=== PATIENT | female | born 1945 | race Caucasian/White ===

== ENCOUNTER 2016-07-11 07:45 | Inpatient (IN) | payer MEDICARE, OTHER ==
[2016-07-11] VITALS (23 sets, daily range): BP systolic 94–125; BP diastolic 65–88; BMI 39.6
[~2016-07-11] VITALS: Ht 154.9 cm; Wt 93.6 kg
--- NOTE | ~2016-07-11 | HEMODYNAMI ---
PATIENT:CORINE SALCIDO MEDICAL RECORD: [id number] : 41 [facility] DATE: 07/11/16 Generatedon:07/11/201611:12 Patient name: CORINE SALCIDO Patient #: [id number] SSN: : 1945 Date of study: 07/11/2016 Page: Of Hemodynamic Procedure Report Patient Data Patient Demographics Procedure consent was obtained First Name: CORINE Gender: Female Last Name: LOLY : 1945 [facility] Initial: RENÉE Age: 71 year(s) Patient #: [id number] Race: Unknown Additional ID: [id number] Contact details [address]: [address] [place] [address] State: [place] City: [place] Zip code: [address] Past Medical History Allergies Allergen Reaction Date Comments Reported Penicillins 07/11/2016 Admission Admission Data Admission Date: 07/11/2016 Admission Time: 9:36 [facility] Weight (lbs.): 198 Weight (kg.): 89.81 Lab Results Lab Result Date: 07/11/2016 Lab Result Time: 0:00 Biochemistry Name Units Result Min Max BUN mg/dl 29 --(----)-* 7 18 Creatinine mg/dl 1.4 --(----)*- 0.6 1.3 CBC Name Units Result Min Max Hemoglobin g/dl 10.2 *-(----)-- 13.5 17.5 Procedure Procedure Types Cath Procedure Diagnostic Procedure LHC LHC w/Coronaries PCI Procedure AMI-BMS/NAZIA Initial Miscellaneous Procedures Moderate Sedation up to 45 minutes Procedure Description Procedure Date Procedure Date: 07/11/2016 Procedure Start Time: 10:26 Procedure End Time: 11:04 Procedure Staff Name Function Asad Sales MD Performing Physician Indu Dodge RN Nurse Jacoby Khan RT Monitor Haresh Vargas RT Scrub Procedure Data Cath Procedure Fluoroscopy Diagnostic fluoroscopy Total fluoroscopy Time: 7.7 time: 7.7 min min Diagnostic fluoroscopy Total fluoroscopy dose: dose: 1113 mGy 1113 mGy Contrast Material Contrast Material Type Amount (ml) Isovue 300 208 Entry Location Entry Primary Successful Side Size Upsize Upsize Entry Closure Succes sful Closure Location (Fr) 1 (Fr) 2 (Fr) Remarks Device Remarks Femoral Right 6 Fr Exoseal artery Short Diagnostic catheters Device Type Used For End Catheter Placement Cordis 5Fr JL 4.0 Left Coronary Catheter (MP) Angiography Cordis 5Fr 3DRC Catheter Right Coronary (MP) Angiography Cordis 5Fr Pigtail LV Angiography Catheter (MP) Procedure Complications No complications Procedure Medications Medication Administration Route Dosage Oxygen NC 2 l/min Heparin Flush Bag added to field 2 bags (1000units/500ml NS) Lidocaine 2% added to field 20 Versed I.V. 0.5 mg Fentanyl I.V. 50 mcg Versed I.V. 0.5 mg Heparin Bolus I.V. 9000 units Fentanyl I.V. 25 mcg Versed I.V. 0.5 mg Nitroglycerin IC/IA I.C. 100 mcg Versed I.V. 0.5 mg Cardene I.C. 300 mcg Fentanyl I.V. 25 mcg Plavix P.O. 600 mg Hemodynamics Rest HGB: 10.2 (g/dl) Heart Rate: 81 (bpm) Pressure Samples Time Site Value (mmHg) Purpose Heart Use Rate(bpm) 10:32 LV 113/17,37 EDP 81 10:32 LV 116/15,30 Snapshot 75 10:33 AO 113/74(93) Pullback 85 10:33 LV 113/15,25 Pullback 85 Gradients Valve Time Site 1 Site 2 Mean SEP/DFP Peak To Heart Use (mmHg) (sec/min) Peak Rate (mmHg) (bpm) Aortic 10:33 LV AO 12 7 0 85 113/15,25 113/74(93) Calculations Valve P-P Mean Valve Index Valve Source Name Gradient Area Flow (cm2) Aortic 0 12 0 12 Snapshots Pre Cath Intra NCS Post Cath Vital Signs Time Heart Resp SPO2 etCO2 [id number] NIBP (mmHg) Rhythm Pain Christine tion Rate (ipm) (%) (mmHg) (mmHg) Status Level (bpm) 10:16:11 98 17 95 0 0 128/87(102) NSR w/ ST 3 (11) , 10(A ) Elevation Tolerable 10:20:19 80 16 100 0 0 124/89(99) NSR w/ ST 3 (11) , 10(A ) Elevation Tolerable 10:24:31 77 16 98 0 0 119/82(111) NSR w/ ST 0 (11) , 9(A) Elevation No pain 10:28:43 77 16 99 0 0 110/78(102) NSR w/ ST 0 (11) , 9(A) Elevation No pain 10:32:49 88 16 100 0 0 111/83(99) NSR w/ ST 0 (11) , 9(A) Elevation No pain 10:36:57 82 16 100 0 0 117/82(99) NSR w/ ST 0 (11) , 9(A) Elevation No pain 10:41:05 81 16 97 0 0 119/80(97) NSR w/ ST 0 (11) , 9(A) Elevation No pain 10:45:14 86 16 98 0 0 108/71(93) NSR w/ ST 0 (11) , 9(A) Elevation No pain 10:49:22 84 16 98 0 0 105/76(88) NSR w/ ST 0 (11) , 9(A) Elevation No pain 10:53:24 81 15 95 0 0 99/72(81) NSR w/ ST 0 (11) , 9(A) Elevation No pain 10:57:30 87 13 95 0 0 103/69(85) NSR w/ ST 0 (11) , 10(A ) Elevation No pain 11:00:46 85 14 95 0 0 104/72(88) NSR w/ ST 0 (11) , 10(A ) Elevation No pain Medications Time Medication Route Dose Verified Delivered Reason Notes Effectiveness by by 10:18:33 Oxygen NC 2 Asad Indu Per physician l/min Kishore Dodge RN 10:18:39 Heparin Flush added 2 Asad Asad used for Bag to bags Kishore Sales MD procedure (1000units/500ml field NS) 10:18:47 Lidocaine 2% added 20ml Asad Asad used for to vial Kishore Sales MD procedure field 10:20:55 Versed I.V. 0.5 Asad Indu for sedation mg Kishore Dodge RN 10:21:02 Fentanyl I.V. 50 Asad Indu for sedation mcg Kishore Dodge RN 10:30:12 Versed I.V. 0.5 Asad Nidu for sedation mg Kishore Dodge RN 10:35:54 Heparin Bolus I.V. 9000 Asad Indu for dose units Kishore Dodge RN anticoagulation verified wtih dr sales 10:36:19 Fentanyl I.V. 25 Asad Indu for sedation mcg Kishore Dodge RN 10:36:27 Versed I.V. 0.5 Asad Indu for sedation mg Kishore Dodge RN 10:47:39 Nitroglycerin I.C. 100 Asad Asad for IC/IA mcg Kishore Sales MD vasodilation 10:48:00 Versed I.V. 0.5 Asad Indu for sedation mg Kishore Dodge RN 10:51:04 Cardene I.C. 300 Asad Asad for mcg Kishore Sales MD vasodilation 10:51:28 Fentanyl I.V. 25 Asad Indu for sedation mcg Kishore Dodge RN 10:59:20 Plavix P.O. 600 Asad Indu for mg Kishore Dodge RN antiplatelet therapy Procedure Log Time Note 9:57:03 Haresh Vargas RT(R) sent for patient. Start room use. 9:57:04 Time tracking: Regular hours 9:57:08 Plan of Care:Hemodynamics will remain stable., Cardiac rhythm will remain stable., Comfort level will be maintained., Respiratory function will remain adequate., Patient/ family verbilizes understanding of procedure., Procedure tolerated without complication., Recovers from procedure without complications.. 10:10:35 Patient arrives emergently. 10:10:42 Patient received from ED to CCL 1 Alert and oriented. Tansferred to table in Supine position. 10:10:43 Correct patient and procedure confirmed by team. 10:10:43 Warm blankets applied, and jaleesa hugger turned on for patient comfort. 10:10:44 ECG and BP/O2 sat monitors applied to patient. 10:10:47 Signed procedure consent form obtained from patient. 10:15:10 Vital chart was started 10:17:42 Baseline sample Acquired. 10:17:50 Rhythm: sinus tachycardia 10:17:51 Full Disclosure recording started 10:17:57 H&P Date Dictated: 07/11/2016 Within 30 days and on chart.. 10:17:59 Pre-procedure instructions explained to patient. 10:18:00 Pre-op teaching completed and patient verbalized understanding. 10:18:02 Family in patients room. 10:18:03 Patient NPO since Midnight. 10:18:20 Patient allergic to Penicillins 10:18:22 Is the patient allergic to Iodine/contrast media? No. 10:18:27 Is patient on blood thinner?No 10:18:33 Oxygen 2 l/min NC was administered by Indu Dodge RN; Per physician; 10:18:39 Heparin Flush Bag (1000units/500ml NS) 2 bags added to field was administered by Asad Sales MD; used for procedure; 10:18:39 Patient diabetic? No. 10:18:40 ----Pre-sedation anethsthesia assessment.---- 10:18:43 Previous problem with sedation/anesthesia? No ? 10:18:45 Snore? No 10:18:47 Lidocaine 2% 20ml vial added to field was administered by Asad Sales MD; used for procedure; 10:18:47 Sleep apnea? No 10:18:55 Patient Weight : 198 kg 10:18:58 Deviated septum? No 10:19:06 Opens mouth fully? Yes 10:19:07 Sticks out tongue? Yes 10:19:10 Airway obstruction? No ? 10:19:12 Dentures? No ? 10:19:15 Pre procedure: right dorsailis pedis pulse 1+ Palpable, but thready & weak; easily obliterated 10:19:25 Patient pain scale 0/10 no pain at this time. 10:19:40 IV patent on arrival in right antecubital with 0.9% NaCl at 10ml/hr. 10:20:04 Lab Result : BUN 29 mg/dl 10:20:04 Lab Result : Creatinine 1.4 mg/dl 10:20:04 Lab Result : Hemoglobin 10.2 g/dl 10:20:07 Lab results completed and on chart. 10:20:10 Right groin area was prepped with chlora-prep and draped in sterile fashion 10:20:11 Alarms reviewed by R. N. 10:20:12 Sharps counted by scrub and verified by R.N. 10:20:13 --------ALL STOP TIME OUT------ 10:20:13 Final Timeout: patient, procedure, and site verified with staff and physician. All members of the team are in agreement. 10:20:15 Right groin site verified by team. 10:20:19 Physical assessment completed. ASA score P 2 - A patient with mild systemic disease as per Asad Sales MD. 10:20:24 Sedation plan: IV Moderate Sedation Versed, Fentanyl 10::29 Use device set Femoral PCI 10::32 Use device set Multipack Set 10:20:55 Versed 0.5 mg I.V. was administered by Indu Dodge RN; for sedation; 10:21:02 Fentanyl 50 mcg I.V. was administered by Indu Dodge RN; for sedation; 10:24:26 Procedure started. 10:26:00 Zero performed for pressure channel P1 10:26:20 Local anesthetic to right femoral artery with Lidocaine 2% by Asad Sales MD.INITIAL ACCESS ONLY 10:26:32 A 6 Fr Short sheath was inserted into the Right Femoral artery 10:27:56 Baseline sample Acquired. 10:28:04 Acist Syringe opened to sterile field. 10:28:04 Acist Hand Control opened to sterile field. 10:28:05 Bag Decanter opened to sterile field. 10:28:05 Medline Cath Pack opened to sterile field. 10:28:05 Terumo 6Fr [place] Sheath opened to sterile field. 10:28:06 St Arsenio 260cm J .035 wire opened to sterile field. 10:28:06 Merit BasixCompak Inflation Kit opened to sterile field. 10:28:07 Acist Manifold opened to sterile field. 10:28:07 Tegaderm 4 x 4 opened to sterile field. 10:28:08 Diagnostic Infinity 5Fr Multipack catheter opened to sterile field. 10:28:12 A Cordis 5Fr JL 4.0 Catheter (MP) was advanced over the wire and used for Left Coronary Angiography. 10:28:21 LCA angiography performed. 10:29:44 Catheter removed. 10:29:52 A Cordis 5Fr 3DRC Catheter (MP) was advanced over the wire and used for Right Coronary Angiography. 10:30:12 Versed 0.5 mg I.V. was administered by Indu Dodge RN; for sedation; 10:30:18 RCA angiography performed. 10:30:58 Catheter removed. 10:31:06 Cordis 6FR XBLAD 3.5 guide catheter opened to sterile field. 10:31:38 A Cordis 5Fr Pigtail Catheter (MP) was advanced over the wire and used for LV Angiography. 10::43 LV angiography performed. 10::45 LV gram done using QUINTERO 10::46 LV hemodynamics recorded. 10:31:51 Injector settings: Ml/sec: 10, Volume: 20, 10:33:05 EF : 30 % 10:33:22 Catheter removed. 10:33:36 ACC PCI Site: mLAD has 99% stenosis. 10:33:40 ACC Pre-intervention DION Flow is 3. 10:33:47 6 Fr XBLAD 3.5 guide catheter was inserted over the wire 10:33:54 BMW wire advanced. 10:35:54 Heparin Bolus 9000 units I.V. was administered by Indu Dodge RN; for anticoagulation; dose verified wt dr sales 10:36:19 Fentanyl 25 mcg I.V. was administered by Indu Dodge RN; for sedation; 10:36:27 Versed 0.5 mg I.V. was administered by Indu Dodge RN; for sedation; 10:37:59 Inflation number: 1 A Dresser Sci Bonner 2.0 X 20 balloon was prepped and advanced across the Mid LAD, then inflated to 12 CECI for 0:16 (min:sec). 10:38:22 Inflation number: 2 The Dresser Sci Bonner 2.0 X 20 balloon was reinflated across the Mid LAD, to 12 CECI for 0:15 (min:sec). 10:40:13 Balloon removed over the wire. 10:42:25 Inflation Number: 3 A Medtronic Integrity 2.75 X 18 stent was prepped and advanced across the Mid LAD. The stent was deployed at 16 CECI for 0:16 (min:sec). 10:43:40 Stent catheter was removed intact over wire. 10:46:16 Inflation Number: 4 A Medtronic Integrity 2.5 X 22 stent was prepped and advanced across the Mid LAD. The stent was deployed at 10 CECI for 0:16 (min:sec). 10:46:28 Inflation number: 5 The stent balloon was then re-inflated across the Mid LAD to 14 CECI for 0:11 (min:sec). 10:47:07 Stent catheter was removed intact over wire. 10:47:39 Nitroglycerin IC/IA 100 mcg I.C. was administered by Asad Sales MD; for vasodilation; 10:48:00 Versed 0.5 mg I.V. was administered by Indu Dodge RN; for sedation; 10:51:04 Cardene 300 mcg I.C. was administered by Asad Sales MD; for vasodilation; 10:51:28 Fentanyl 25 mcg I.V. was administered by Indu Dodge RN; for sedation; 10:57:03 Inflation Number: 1 A Medtronic Integrity 2.25 X 18 stent was prepped and advanced across the Dist LAD. The stent was deployed at 10 CECI for 0:13 (min:sec). 10:57:23 Stent catheter was removed intact over wire. 10:57:43 Sheath removed intact; hemostasis achieved with Exoseal to the Right Femoral artery. 10:57:53 Cordis 6Fr Exoseal opened to sterile field. 10:57:58 Contrast amount:Isovue 300 208ml. 10:58:00 Procedure ended.(Physican Out) 10:58:24 Procedure type changed to Cath procedure, Diagnostic procedure, LHC, C w/Coronaries, PCI procedure, AMI-BMS/NAZIA Initial, Miscellaneous Procedures, Moderate Sedation up to 45 minutes 10:59:20 Plavix 600 mg P.O. was administered by Indu Dodge RN; for antiplatelet therapy; ::23 Fluoroscopy time 07.70 minutes. 11::29 Fluoroscopy dose: 1113 mGy 11::29 Flurop Dose total: 1113 11:02:31 Sharps counted by scrub and verified by R.N. 11:02:32 Insertion/operative site no bleeding no hematoma. 11:02:35 Post-op/insertion site Right Femoral artery dressed using a 4 x 4 and Tegaderm. 11:02:39 Post right femoral artery:stable 11:02:41 Post Procedure Pulses reassessed and unchanged 11:02:43 Post procedure: right dorsailis pedis pulse 1+ Palpable, but thready & weak; easily obliterated. 11:02:49 Post-procedure physical assessment completed. ASA score P 2 - A patient with mild systemic disease as per Asad Sales MD. 11:02:55 Post procedure rhythm: sinus rhythm 11:02:57 Post procedure instruction explained to patient.Patient verbalizes understanding. 11:03:35 High Pressure Extension Tubing (Sales) opened to sterile field. 11:03:35 Porras BMW [place] 2 J-tip 300cm 0.014 guide wir opened to sterile field. 11:03:57 Procedure and supply charges have been captured, reviewed, submitted and are correct. 11:04:02 Procedure Complication : No complications 11:04:05 Vital chart was stopped 11:04:05 See physician's report for complete and final results. 11:04:07 Report given to CVICU. 11:04:10 Patient transfered to CVICU with Bed. 11:04:12 Procedure ended. 11:04:12 Full Disclosure recording stopped 11:04:25 ACC-PCI Only Patient was given prescriptions, or instructed by Asad Sales MD to start/continue the following medications upon discharge: Plavix 11:04:27 End room use (Document Last) Intervention Summary Intervention Notes Time ActionType Lesion and Equipment Action# Pressure Duration Attributes Used 10:37:59 Inflate Mid LAD Dresser 1 12 00:16 balloon Sci Bonner 2.0 X 20 balloon 10:38:22 Reinflate Mid LAD Dresser 2 12 00:15 balloon Sci Bonner 2.0 X 20 balloon 10:42:25 Place stent Mid LAD Medtronic 3 16 00:16 Integrity 2.75 X 18 stent 10:46:16 Place stent Mid LAD Medtronic 4 10 00:16 Integrity 2.5 X 22 stent 10:46:28 Reinflate Mid LAD Medtronic 5 14 00:11 stent Integrity balloon 2.5 X 22 stent 10:57:03 Place stent Dist LAD Medtronic 1 10 00:13 Integrity 2.25 X 18 stent Device Usage Item Name Manufacture Quantity Catalog Number Hospital Part Current [facility] Lot# / Charge Number Stock Stock Serial# Code Acist Acist 1 60308 373531 698665 673551 20 Syringe Medical Systems Inc Acist Hand Acist 1 93843 929377 814537 933621 5 Cirrus Works Inc Bag Microtek 1 556577 73631 261358 5 Loccit (ML4D) Inc. Medline Cardinal 1 [id number] 045452 05535 422774 5 Cath Pack Health Terumo 6Fr Terumo 1 [id number] 273193 885300 697128 [address] Arsenio 1 378923 204503 430401 529508 30 260cm J .035 wire Merit Merit 1 [id number] 286021 139710 485118 15 Syncurity Medical Inflation Kit Acist Acist 1 34564 493929 312033 983265 5 Ringly Inc Tegaderm 4 3M 1 [id number] 492216 562421 089830 5 x 4 Diagnostic Cardinal 1 [id number] 208015 42414 462282 30 Infinity Health 5Fr Multipack catheter Cordis 5Fr Cardinal 1 410266 5 JL 4.0 Health Catheter (MP) Cordis 5Fr Cardinal 1 776420 5 3DRC Health Catheter (MP) Cordis 6FR Cardinal 1 [id number] 656020 558848 181256 10 XBLAD 3.5 Health guide catheter Cordis 5Fr Cardinal 1 430093 5 Pigtail Health Catheter (MP) Dresser Sci Dresser 1 [id number] 396246 724372 696442 1 [id number] OPKO Health 2.0 X 20 balloon Medtronic Medtronic 1 [id number] 102129 358801 733336 0 [id number] Integrity 2.75 X 18 stent Medtronic Medtronic 1 [id number] 834444 861088 8 [id number] Integrity 2.5 X 22 stent Medtronic Medtronic 1 [id number] 890569 555830 440372 3 [id number] Integrity 2.25 X 18 stent Cordis 6Fr Cardinal 1 [id number] 426175 354407 818427 10 Semasio Health High Merit 1 [id number] 179378 52614 754269 10 Pressure Medical Extension Tubing (Sales) Porras BMW Porras 1 [id number] 519889 258672 101822 5 [place] 2 Vascular J-tip 300cm 0.014 guide wir Signature Audit [place] Stage Time Signature Unsigned Intra-Procedure 07/11/2016 Jacoby Khan 11:12:21 AM RT(R) Signatures Monitor : Jacoby Khan RT Signature : Date : Time : [address] [place] [address]
[2016-07-11 08:17] LABS: BASOPHILS 0.9 % (0.0-2.0); EOSINOPHILS 3.8 % (0-7); HEMATOCRIT 32.6 % (36.0-48.0); HEMOGLOBIN 10.2 g/dL (12-16); IMMATURE GRANULOCYTES 0.7 % (0-5); LYMPHOCYTES 32.9 % (15-50); MCH 26.6 pg (26.0-34.0); MCHC 31.3 g/dL (31.0-37.0); MCV 84.9 fL (80.0-100.0); MEAN PLATELET VOLUME 10.3 fL (7.4-10.4); MONOCYTES 8.3 % (2-11); NEUTROPHILS 53.4 % (40-80); RBC 3.84 10x6/uL (4.00-5.40); RDW 16.4 % (11.5-14.5); WBC 5.8 10x3/uL (4.8-10.8)
[2016-07-11 08:18] LABS: PLATELET COUNT 240 10x3/uL (130-400)
[2016-07-11 08:36] LABS: APTT 26.6 SECONDS (22.8-39.4); INR 1.01 (0.85-1.17); PROTIME 13.1 SECONDS (11.6-15.0)
[2016-07-11 08:37] LABS: ALBUMIN 3.2 g/dL (3.4-5.0); ALKALINE PHOSPHATASE 33 U/L (46-116); ALT (SGPT) 24 U/L (10-68); BILIRUBIN - TOTAL 0.19 mg/dL (0.2-1.3); CALC OSMOLALITY 290 mosm/kg (275-300); CALCIUM 8.7 mg/dL (8.5-10.1); CARBON DIOXIDE 27.1 mmol/L (21.0-32.0); CHLORIDE - SERUM 107 mmol/L (98-107); CREATININE - SERUM 1.4 mg/dL (0.6-1.3); GLUCOSE 130 mg/dL (74-106); POTASSIUM - SERUM 4.3 mmol/L (3.5-5.1); PROTEIN - SERUM 6.8 g/dL (6.4-8.2); SODIUM 142 mmol/L (136-145); UREA NITROGEN 29 mg/dL (7-18); eGFR NON AFRICAN AMERICAN 39 mL/min (90-120)
[2016-07-11 08:44] LABS: CHOL - HDL RATIO 4.3 ratio (2.3-4.1); CHOLESTEROL, TOTAL 204 mg/dL (0-200); CKMB 0.4 U/L (0.0-3.6); CREATINE KINASE 58 UL (21-215); HDL CHOLESTEROL 48 mg/dL (32-96); LDL CHOLESTEROL 113 mg/dL (0-100); LDL-HDL RATIO 2.4 ratio (1.5-3.5); MAGNESIUM - SERUM 2.1 mg/dL (1.8-2.4); TRIGLYCERIDE 219 mg/dL (30-200); TROPONIN-I 0.022 ng/mL (0.000-0.060)
--- NOTE | 2016-07-11 11:12 | NUR ---
RECIEVED REPORT FROM GENERAL PASSENGER AGENT FROM [place]. WAITING TO RECIEVE PT.
--- NOTE | 2016-07-11 11:16 | NUR ---
PT ARRIVED TO UNIT FROM [facility] VIA BED ACCOMPANIED BY HOSPITAL STAFF. PT IS STABLE. PEDAL PULSES PRESENT. FEMORAL DRESSING SITE IS CDI. NO ACUTE DISTRESS NOTED. WILL CONTINUE PLAN OF CARE.
--- NOTE | 2016-07-11 11:32 | NUR ---
FAMILY AT BEDSIDE. UPDATE GIVEN. NO ACUTE DISTRESS NOTED. WILL CONTINUE PLAN OF CARE.
--- NOTE | 2016-07-11 11:51 | NUR ---
DRESSING TO RIGHT FEMORAL HEART CATH ACCESS SITE NOTED TO BE SATURATED WITH BLOOD. SANDBAG APPLIED TO SITE TO HELP PROVIDE PRESSURE AND SUPRESS BLEEDING.
--- NOTE | 2016-07-11 12:19 | NUR ---
PT COMPLAINT OF NAUSEA. SPOKE WITH DR MITCHELL NOTED NEW ORDER FOR ZOFRAN 4MG Q4H. WILL PLACE ORDER.
--- NOTE | 2016-07-11 12:43 | NUR ---
BLEEDING TO RIGHT FEMORAL DRESSING SITE STOPPED. SANDBAG REMOVED. PEDAL PULSES PRESENT. WILL CONTINUE TO OBERVE.
--- NOTE | 2016-07-11 13:07 | NUR ---
500ML VOID VIA BEDPAN AT THIS TIME. RIGHT LEG KEPT STRAIGHT, PT KEPT FLAT. WILL CONTINUE PLAN OF CARE.
--- NOTE | 2016-07-11 13:07 | NUR ---
ASSESSMENTS PERFORMED PER ORDERS. NO S/S HEMATOMA. NO BLEEDING. PEDAL PULSES PRESENT. NO ACUTE DISTRESS NOTED. WILL CONTINUE PLAN OF CARE.
--- NOTE | 2016-07-11 15:01 | NUR ---
NO CHANGE. VSS. PT STILL LYING FLAT PER POST PROCEDURE PROTOCOL. NO S/S BLEEDING/HEMATOMA. NO ACUTE DISTRESS. WILL CONTINUE PLAN OF CARE.
--- NOTE | 2016-07-11 16:01 | NUR ---
PEDAL PULSES PRESENT PER PALPATATION NO BLEEDING NOTED OR S/S HEMATOMA. PT LYING FLAT. NO ACUTE DISTRESS NOTED. WILL CONTINUE PLAN OF CARE.
--- NOTE | 2016-07-11 16:54 | NUR ---
SCHEDULED COREG HELD AT THIS TIME FOR BP OF 104/68, MAP 80. HELD PER NURSE JUDGEMENT. WILL CONTINUE PLAN OF CARE.
--- NOTE | 2016-07-11 17:20 | NUR ---
NOTED PT HAS BEEN FLAT IN BED FOR 6 HOURS PER POST HEART CATH PROCEDURAL PROTOCOL. THERE IS NO S/S OF BLEEDING OR HEMATOMA NOTED, PEDAL PULSES PRESENT. PT DENIES ANY PAIN OR DISCOMFORT. LINENS CHANGED AND CLEAN LINENS PROVIDED AT THIS TIME. PT SITTING UP IN BED EATING SUPPER. DENIES ANY NEEDS. NO ACUTE DISTRESS NOTED. WILL CONTINUE PLAN OF CARE.
--- NOTE | 2016-07-11 19:30 | NUR ---
Received patient awake and alert in bed, Assessment completed per flowsheet. Patient AO x4, demeanor is pleasant and cooperative. Eyes PERRLA @ 3mm with brisk response, sclera is white. S1/S2 noted with patient NSR on telemetry with HR 76, ST elevation noted with rate rhythmic and regular. Breathing is even and unlabored on room air, lung sounds clear throughout with O2 sat 95%. Abdomen is soft and non-tender, bowel sounds active x4. Cath incision R groin, dressing CDI site is soft with no redness noted. 6fr Exoseal used. Full ROM all extremities with all pulses palpable, Cap refill <3 sec. Denies pain or other needs at this time, all VSS and will continue to monitor.
--- NOTE | 2016-07-11 21:00 | NUR ---
Visitors at bedside, no questions from family at this time. Patient denies pain or other needs, all VSS and will continue to monitor.
--- NOTE | 2016-07-11 23:04 | NUR ---
Reassessment completed per flowsheet, patient resting in bed with eyes closed. Patient NSR on telemetry with HR 72, rhythmic and regular with ST elevation noted. Breathing is even and effortless on room air, O2 sat 97%. Cath site dressing CDI, site is soft with no redness/bleeding noted. All extremities warm to touch with all pulses palpable, cap refill <3 sec. Patient denies pain or other needs at this time, all VSS and will continue to monitor.
[2016-07-12] VITALS (25 sets, daily range): BP systolic 93–123; BP diastolic 55–77; Ht 154.9 cm; Wt 93.6 kg
--- NOTE | 2016-07-12 01:00 | NUR ---
Patient resting in bed with eyes open watching TV, breathing is even and unlabored. Patient denies pain or other needs at this time, all VSS and will continue to monitor.
--- NOTE | 2016-07-12 03:12 | NUR ---
Reassessment completed per flowsheet, patient resting in bed with eyes closed. Patient NSR on Telemetry with HR 69, rhythmic and regular with ST elevation noted. Breathing is even and unlabored on room air, O2 sat 95%. R groin incision site no bleeding noted, soft and no redness noted. Patient denies pain at this time, all VSS and will continue to monitor.
--- NOTE | 2016-07-12 05:10 | NUR ---
Patient resting in bed with eyes closed, breathing is even and unlabored on room air. No further needs at this time, all VSS and will continue to monitor.
--- NOTE | 2016-07-12 07:00 | NUR ---
REPORT RECEIVED. ASSESSMENT COMPLETED. PATIENT IN HIGH FOWLERS POSITION WATCHING TV. ONLY REQUEST WAS TO USE THE BATHROOM. PATIENT ASSISTED TO THE BATHROOM. NO FURTHER NEEDS.
--- NOTE | 2016-07-12 09:30 | NUR ---
NO VISITORS NOTED THIS VISITATION.
[2016-07-12 10:37] LABS: ANION GAP 13.8 mmol/L (8-16); CALCIUM 8.3 mg/dL (8.5-10.1); CARBON DIOXIDE 24.3 mmol/L (21.0-32.0); CREATININE - SERUM 1.4 mg/dL (0.6-1.3); POTASSIUM - SERUM 4.1 mmol/L (3.5-5.1)
[2016-07-12 10:41] LABS: TROPONIN-I 54.608 ng/mL (0.000-0.060)
--- NOTE | 2016-07-12 10:47 | NUR ---
@1032 RECEIVED CALL FROM WILY IN LAB. PATIENTS TROP I [phone]. CALL WAS PLACED TO DR MITCHELL'S OFFICE. SPOKE WITH HANNA NEVES. WAS PLACED ON HOLD WHILE SHE SPOKE WITH DR MITCHELL. NEW ORDER RECEIVED FOR REPEAT TROP I IN 6 HOURS. ORDER WAS PUT IN THE COMPUTER.
--- NOTE | 2016-07-12 14:13 | NUR ---
PATIENT IN SEMIFOWLERS POSITION WATCHING TV. DENIES NEEDS AT THIS TIME.
--- NOTE | 2016-07-12 15:27 | NUR ---
VISITORS HERE QUESTIONING TO WHEN THE DOCTOR WOULD BE RETURNING THIS AFTERNOON. IT HAS BEEN EXPLAINED THAT HE PROBABLY WOULD NOT RETURN UNTIL AFTER CLINIC HOURS.
--- NOTE | 2016-07-12 16:59 | NUR ---
PATIENT SITTING IN CHAIR AT BEDSIDE EATING DINNER WITH DAUGHTER AT SIDE. NO NEEDS VOICED AT THIS TIME.
--- NOTE | 2016-07-12 18:23 | NUR ---
PATIENT CURRENTLY IN CHAIR AT BEDSIDE VISITING WITH VISITORS X3. NO NEEDS VOICED.
--- NOTE | 2016-07-12 22:39 | NUR ---
Assessment completed per flowsheet, patient resting in bed with eyes open and family at bedside. Patient AO x4, demeanor is pleasant and cooperative. Eyes PERRLA @ 3mm with brisk response, sclera is white. S1/S2 noted with patient NSR on telemetry with HR 84, rhythmic and regular with slight ST elevation noted. Breathing is even and unlabored on room air, lung sounds clear all [place]. Abdomen is soft and non-tender, bowel sounds Active x4. Paitent ambulates to bathroom with slight assistance, no reported difficulties. Full ROM all extremities with all pulses palpable, generalized swelling noted in lower extremities. Skin warm to touch with cap refill <3 sec. 20g PIV x2 noted, R wrist/L AC saline locked. Patient denies pain or other needs at this time, all VSS and will continue to monitor.
--- NOTE | 2016-07-12 23:00 | NUR ---
Reassessment completed per flowsheet, patient resting in bed with eyes closed. Patient NSR on telemetry with HR 83, rhythmic and regular. Breathing is even and unlabored on room air, O2 sat 95% R groin bruises noted, soft and non-tender with no bleeding seen. Lower extremities warm to touch with cap refill <3 sec, all pulses palpable. Patient denies pain or other needs at this time, all VSS and will continue to monitor.
[2016-07-13] VITALS (10 sets, daily range): BP systolic 103–123; BP diastolic 64–78
--- NOTE | 2016-07-13 01:00 | NUR ---
Patient resting in bed with eyes closed, breathing is even and unlabored. All VSS with no further needs at this time, will continue to monitor.
--- NOTE | 2016-07-13 03:06 | NUR ---
Reassessment completed per flowsheet, patient resting in bed with eyes closed. Patient NSR on telemetry with HR82, rhythmic and regular with ST elevation noted. Breathing is even and unlabored on room air, O2 sat 94%. All pulses palpable with cap refill <3 sec, skin is warm and dry to touch. Patient denies pain or other needs at this time, all VSS and will continue to monitor.
--- NOTE | 2016-07-13 07:15 | NUR ---
REC'D REPORT AND RESUMED CARE, AAO, NO OSIGNS OF DISTRESS, VSS, DENIES PAIN, ASSESSMENT COMPLETE PER FLOWSHEET, REPOSITIONED UP AND TO BACK WITH HEELS FLOATED, CALL LIGHT IN REACH, BREAKFAST TRAY TO BEDSIDE, INDEPENDENT WITH SET UP AND EATING, NO NEEDS AT THIS TIME
--- NOTE | 2016-07-13 07:31 | NUR ---
DR MITCHELL AT BEDSIDE, NEW ORDER GIVEN FOR TRANSFER TO OUT OF CVICU
--- NOTE | 2016-07-13 08:30 | NUR ---
C/O OF NAUSEA, ZOFARN 4 MG PO GIVEN, AM MEDS INTITIATED
--- NOTE | 2016-07-13 11:20 | NUR ---
UP IN CHAIR EATING LUNCH, DENIES PAIN, WANTING TO GO HOME IF NOT GOING TO ROOM ON PCU, WILL TALK WITH RE: PLAN
--- NOTE | 2016-07-13 16:00 | NUR ---
DR. JEFFRIES HERE FOR EVAL ORDER FOR DISCHARGE GIVEN,
--- NOTE | 2016-07-13 16:09 | NUR ---
Is the patient Alert and Oriented? Yes 0 * How many steps to enter\exit or inside your home? 4 0 * PCP DR. GOLDEN 0 * Pharmacy [facility] [address] 0 * Preadmission Environment Home with Family 0 * ADLs Independent 0 * Equipment None 0 * List name and contact numbers for known caregivers / representatives who currently or will assist patient after discharge: SPOUSE: CHARLES [phone] * Community resources currently utilized None 0 * Additional services required to return to the preadmission environment? No 0 * Can the patient safely return to the preadmission environment? Yes 0 * Has this patient been hospitalized within the prior 30 days at any hospital? No PATIENT IS AWAKE AND ALERT. SHE STATES THAT SHE LIVES AT HOME WITH HER , CHARLES. HER SON AND DAUGHTER IN LAW ALSO LIVE THERE. HER DAUGHTER IS THERE DURING THE WEEK. PATIENT'S PCP IS DR. GOLDEN. SHE GETS HER MEDS FROM [facility] ON [address] PATIENT DENIES USE OF ANY EQUIPMENT. SHE HAD [facility] IN THE DISTANT PAST WHEN SHE HAD KNEE SURGERY. PATIENT STATES THERE ARE 4 STEPS TO ENTER HER HOME. NO DISCHARGE NEEDS AT THIS TIME.
[2016-07-13] MEDS ORDERED: PLAVIX75 MG PO (16:19)
[2016-07-13] MEDS ORDERED: COREG 3.1253.125 MG PO (16:20)
--- NOTE | 2016-07-13 17:10 | NUR ---
DC'D HOME WITH SPOUSE, VIA PERSONAL VEHICLE, AAO, DENIES PAIN, DISCHARGE INFORMATION GIVEN, PER YAHAIRA, 2 NEW SCRIPTS ADDED TO HOME MEDS, SEE DISCHARGE MEDS
--- NOTE | 2016-07-16 14:54 | EC ---
PATIENT:CORINE SALCIDO DATE OF SERVICE: 07/11/16 SEX: F MEDICAL RECORD: [id number] DATE OF : 41 LOCATION:[place] [address] AGE OF PATIENT: 71 ADMISSION DATE: 07/11/16 REFERRING PHYSICIAN: INTERPRETING PHYSICIAN: GO NOVAK M.D. ECHOCARDIOGRAM REPORT ECHO CHARGES 4 ECHO COMPLETE CLINICAL DIAGNOSIS: ANTERIOR DE/POST STENTS HX OF CAD/STENT/HTN/PALPS ECHOCARDIOGRAPHIC MEASUREMENTS (adult normal given) AC root (d.<3.7cm) 4.0 LV Septum d (<1.2 cm> 1.36 Valve Excursion 1.8 LV Septum (systole) 1.8 Left Atria (s.<4.0cm> 3.3 LVPW d(<1.2cm) 1.4 RV (d.<2.3cm) 4.0 LVPW (sytole) 1.8 LV diastole(<5.6CM) 5.4 MV E-F(>70mm/sec) LV systole 3.7 LVOT Diameter 1.7 MV exc.(>10mm) 0.8 Est.ejection fraction (50-75%) Pericardial Effusion N DOPPLER: LVIT A 81.0 E 61.0 LA RVSP 24 LVOT 89 AOP1/2T 562 Asc. Ao 150 RVOT RA PA AV Gradient Peak 9.00 AV Mean 4.63 AV Area 1.3 MV Gradient Peak 3.62 MV Mean 1.56 MV Area COMMENTS: Chair Spring Assembler: Aruna JURADO Rn Concurrent Review:2 Dr. Novak TAPE# PACS DATE OF SERVICE: 07/12/2016 INDICATION: Anterior wall myocardial infarction. DESCRIPTION: Left ventricle demonstrates left ventricular hypertrophy. The distal anterior wall and apex are hypokinetic. Estimated ejection fraction is in the order of 35% to 40%. Mitral valve is structurally normal. There is mild regurgitation seen. Left atrium is normal in size. The aortic valve is trileaflet. There is mild insufficiency seen, but no evidence of stenosis. Right ventricle is mildly dilated. Tricuspid valve is normal. There is mild ECHOCARDIOGRAM REPORT [id number] CORINE SALCIDO regurgitation noted. Right atrium is normal in size. There is no pericardial effusion seen. IMPRESSION: 1. Left ventricular hypertrophy with moderate left ventricular dysfunction with ejection fraction of 35% to 40%. 2. Mild mitral regurgitation. 3. Mild tricuspid regurgitation. 4. Mild aortic insufficiency. TRANSINT:[id number] Voice Confirmation ID: [id number] DOCUMENT ID: [id number] GO NOVAK M.D. at 1454 CC: [id number] DICTATION DATE: 07/12/16 1610 ACTING SECTION CHIEF: 07/13/16 0422 DIS IN 07/13/16 [place] [id number] [place] [address]
--- NOTE | 2016-07-16 14:54 | OP ---
PATIENT NAME: CORINE SALCIDO RENÉE MEDICAL RECORD: [id number] :43 LOCATION:[place] [facility] ADMISSION DATE:07/11/16 SURGEON: GO MITCHELL M.D. DATE OF OPERATION: 07/11/2016 PROCEDURES PERFORMED: 1. Selective coronary angiography. 2. Left heart catheterization with ventriculogram. 3. PTCA and stent placed to the LAD. INDICATION: A 71-year-old woman presents with acute anterior wall myocardial infarction. She has persistent pain despite thrombolytic therapy. EQUIPMENT USED: Diagnostic 5-Icelandic JL4, Telly right, pigtail catheter. INTERVENTION: A 6-Icelandic XB LAD guide, BMW guide wire, 2.0 x 20 mm Sutton balloon, 2.75 x 18 mm Integrity stent, 2.5 x 22 mm Integrity stent, 2.25 x 18 mm Integrity stent. TECHNIQUE: A 5-Icelandic sheath was inserted in retrograde fashion in the right common femoral artery. Next, selective coronary angiography was performed in standard views using 5-Icelandic JL4 and Telly right. Left heart catheterization performed using pigtail catheter. CORONARY ANATOMY: 1. Left main: Left main trunk is moderate in caliber. It gives rise to LAD, circumflex, and ramus. It has no obstruction. 2. LAD: This vessel is moderate in caliber. The proximal vessel demonstrates a 99% stenosis with very slow flow distal to the lesion. 3. Ramus: This vessel is moderate in caliber. In some views, it has a 67% stenosis proximal aspect of the vessel. 4. Circumflex: This vessel is moderate in caliber. It has mild irregularities throughout its course, but nothing worse than 20%. 5. Right coronary: This vessel is moderate in caliber and dominant. The mid vessel has been stented. There is diffuse restenosis seen, but nothing worse than 40% to 50%. 6. Left ventricle: Left ventricle is normal in size. The distal anterior wall and apex are moderately hypokinetic. Its ejection fraction is in the order of 30%. DESCRIPTION OF INTERVENTION: A 6-Icelandic sheath was inserted in retrograde fashion in the right common femoral artery. Next, 100 units per kilogram of heparin was infused. A 6-Icelandic XB LAD guide was advanced and engaged in the left main coronary artery. Next, a BMW guide wire was placed in the distal LAD. The proximal vessel was predilated with a 2.0 x 20 mm Sutton balloon at 10 atmospheres. Injection revealed yazdanism of flow. At this point, there was a long 90% stenosis seen beyond the first diagonal branch. At this point, a 2.75 x 18 mm Integrity stent was placed across the proximal ulcerated lesion, deployed at 16 atmospheres. Injection reveals stent to be widely patent with 0% residual stenosis. Next, a 2.5 x 22 mm Integrity stent was placed across this long lesion in the mid LAD. The stent was deployed at 10 atmospheres. Injection shows stent to be widely patent with 0% residual stenosis. However, ____ stent, there was some question of an edge dissection. Despite IV nitroglycerin and Cardene, there is no improvement in this area. There was DION 2 flow distal to the stent. At this point, a 2.25 x 18 mm Integrity stent was OPERATIVE REPORT [id number] CORINE SALCIDO placed across this diseased area where there was a question of an edge dissection. The stent was deployed at 10 atmospheres. Injections revealed all 3 stents to be widely patent with marked improvement in distal flow. At this point, the wire and guide were removed. IMPRESSION: Successful percutaneous transluminal coronary angioplasty and stent of the LAD with 0% residual stenosis. TRANSINT:[id number] Voice Confirmation ID: [id number] DOCUMENT ID: [id number] GO MITCHELL M.D. at 1454 CC: [id number] DICTATION DATE: 07/11/16 1108 TOOL STORAGE ATTENDANT: 07/11/16 1427 DIS IN 07/13/16 [place] [id number] [place] [id number]
== END 2016-07-13 17:10 | disposition home or self-care (01) | DRG 249 ==
LOC: D.ER 07:45 → D.CVICU 09:36
PROVIDERS: Emergency Medicine; ADMIT Internal Medicine Cardiovascular Disease
PROC: B2111ZZ Fluoroscopy of Multiple Coronary Arteries using Low Osmolar Contrast (ICD-10-PCS; 2016-07-11)
PROC: B2151ZZ Fluoroscopy of Left Heart using Low Osmolar Contrast (ICD-10-PCS; 2016-07-11)
PROC: 02703FZ Dilation of Coronary Artery, One Artery with Three Intraluminal Devices, Percutaneous Approach (ICD-10-PCS; principal; 2016-07-11 09:50)
PROC: 4A023N7 Measurement of Cardiac Sampling and Pressure, Left Heart, Percutaneous Approach (ICD-10-PCS; 2016-07-11 09:50)
DX: I21.09 ST elevation (STEMI) myocardial infarction involving other coronary artery of anterior wall (principal); I25.10 Atherosclerotic heart disease of native coronary artery without angina pectoris; Z95.5 Presence of coronary angioplasty implant and graft; I10 Essential (primary) hypertension; E78.5 Hyperlipidemia, unspecified; I34.0 Nonrheumatic mitral (valve) insufficiency; I25.2 Old myocardial infarction; I45.10 Unspecified right bundle-branch block

== ENCOUNTER → 2016-07-22 08:28 | Outpatient (CLI) | payer MEDICARE, OTHER ==
[2016-07-12 10:25] VITALS: BMI 38.9
[~2016-07-22 08:28] MED LIST: COREG 3.1253.125 MG PO; ENTRESTO 24 MG1 EACH PO; FENOFIBRATE134 MG PO; FLUTICASONE PRO16 GM NASAL; LASIX40 MG PO; NITROQUICK0.4 MG SL; PACERONE200 MG PO; PLAVIX75 MG PO; PROTONIX40 MG PO; SYNTHROID112 MCG PO; ULTRAM50 MG PO; VITAMIN D5000 UNIT PO; XARELTO15 MG PO; ZOFRAN4 MG PO
== END | disposition home or self-care (01) ==
LOC: D.RAD 08:28
DX: R13.10 Dysphagia, unspecified (principal)

== ENCOUNTER 2016-08-04 11:56 | Outpatient (CLI) | payer MEDICARE, OTHER ==
[~2016-08-04] VITALS: Ht 154.9 cm; Wt 88.2 kg
--- NOTE | ~2016-08-04 | OP ---
PATIENT NAME: CORINE SALCIDO MEDICAL RECORD: [id number] :43 LOCATION:[facility] ADMISSION DATE: SURGEON: GO MITCHELL M.D. DATE OF OPERATION: 08/04/2016 REFERRING PHYSICIAN: gAustin Pan DO PROCEDURES PERFORMED: PTCA and stent placed in the ramus. INDICATION: A 71-year-old woman presents with acute anterior wall myocardial infarction. She underwent stenting of the LAD. She returns today for completion of staged procedure. EQUIPMENT USED: A 6-[place] XB LAD guide, BMW guidewire, 2.5 x 18 mm Integrity stent. DESCRIPTION OF INTERVENTION: A 6-[place] sheath was inserted in retrograde fashion in the right common femoral artery. Next, 100 units per kilogram of heparin was infused. A 6-[place] XB LAD guide was advanced and engaged in the left main coronary artery. Injections revealed a 90% stenosis involving the proximal ramus. A BMW guide wire was placed in the distal vessel. A 2.5 x 18 mm Integrity stent was placed across the stenosis and deployed at 12 atmospheres. Injection shows stent to be widely patent with 0% residual stenosis. There is marked improvement in distal flow. At this point, the wire and guide were removed. IMPRESSION: Successful percutaneous transluminal coronary angioplasty and stent in the ramus with 0% residual stenosis. TRANSINT:[id number] Voice Confirmation ID: [id number] DOCUMENT ID: [id number] GO MITCHELL M.D. CC: [id number] DICTATION DATE: 08/04/16 1511 KILN DOOR REPAIRER: 08/04/16 2149 DEP CLI 08/04/16 [place] [id number] [place] [id number]
--- NOTE | ~2016-08-04 | HEMODYNAMI ---
PATIENT:CORINE SALCIDO MEDICAL RECORD: [id number] : 41 LOCATION:[facility] ADMISSION DATE: 08/04/16 Generatedon:08/04/201615:10 Patient name: CORINE SALCIDO Patient #: [id number] SSN: [id number] : 1945 Date of study: 08/04/2016 Page: Of Hemodynamic Procedure Report Patient Data Patient Demographics Procedure consent was obtained First Name: CORINE Gender: Female Last Name: LOLY : 1945 [facility] Initial: RENÉE Age: 71 year(s) Patient #: [id number] Race: Unknown SSN: [id number] Additional ID: [id number] Contact details [address]: [address] [place] [address] State: [place] City: [place] Zip code: [address] Past Medical History Allergies Allergen Reaction Date Comments Reported Penicillins 07/11/2016 Other allergy 08/04/2016 [facility] Admission Admission Data Admission Date: 08/04/2016 Admission Time: 11:56 Arrival Date: 08/04/2016 Arrival Time: 0:00 Admit Source: Other Insurance Payor: Medicaid Height (in.): 6 BSA: 0.35 (m2) Height (cm.): 15.24 BMI: 3905.94 (kg/m2) Weight (lbs.): 200 Weight (kg.): 90.72 Lab Results Lab Result Date: 08/04/2016 Lab Result Time: 0:00 Biochemistry Name Units Result Min Max BUN mg/dl 29 --(----)-* 7 18 Creatinine mg/dl 1.4 --(----)*- 0.6 1.3 CBC Name Units Result Min Max Hemoglobin g/dl 9.8 *-(----)-- 13.5 17.5 Procedure Procedure Types Cath Procedure Diagnostic Procedure LHC LHC w/Coronaries PCI Procedure Coronary Stent Initial Miscellaneous Procedures Moderate Sedation up to 15 minutes Procedure Description Procedure Date Procedure Date: 08/04/2016 Procedure Start Time: 14:29 Procedure End Time: 15:07 Procedure Staff Name Function Asad Novak MD Performing Physician Lacey Rick RT Scrub Darvin Vincent RN Nurse Germaine Rendon RN Contact Officer Grisel Magdaleno RT Monitor Procedure Data Cath Procedure Fluoroscopy Diagnostic fluoroscopy Total fluoroscopy Time: 2.9 time: 2.9 min min Diagnostic fluoroscopy Total fluoroscopy dose: 124 dose: 124 mGy mGy Contrast Material Contrast Material Type Amount (ml) Isovue 300 60 Entry Location Entry Primary Successful Side Size Upsize Upsize Entry Closure Beauchamp ccessful Closure Location (Fr) 1 (Fr) 2 (Fr) Remarks Device Remarks Femoral Right 6 Fr Exoseal artery Short Radial Right 6 Fr Mechanical tr artery Short Compression Estimated blood loss: 10 ml Procedure Complications No complications Procedure Medications Medication Administration Route Dosage Oxygen NC 2 l/min Heparin Flush Bag added to field 2 bags (1000units/500ml NS) 0.9% NaCl I.V. 100 ml/hr Radial Cocktail added to field 1 syringe (Verapomil 2mg/Nitro 400mcg/Heparin 1500units) Fentanyl I.V. 50 mcg Versed I.V. 1 mg Fentanyl I.V. 50 mcg Versed I.V. 1 mg Radial Cocktail I.A. 1 syringe (Verapomil 2mg/Nitro 400mcg/Heparin 1500units) Fentanyl I.V. 50 mcg Fentanyl I.V. 50 mcg Heparin Bolus I.V. 9000 units Hemodynamics Rest BSA: 0.35 (m2) HGB: 9.8 (g/dl) O2 Consumption: Estimated: 32.76 (ml/min) O2 Cons umption indexed: Estimated:93.6 (ml/min/m) Heart Rate: 76 (bpm) Snapshots Pre Cath Intra NCS Post Cath Vital Signs Time Heart Resp SPO2 NIBP (mmHg) Rhythm Pain Sedation Rate (ipm) (%) Status Level (bpm) 14:05:01 76 23 98 114/81(98) NSR 0 (11) 10(A) , No pain 14:09:15 77 20 94 114/67(96) NSR 0 (11) 10(A) , No pain 14:13:22 70 17 91 106/84(100) NSR 0 (11) 10(A) , No pain 14:17:32 67 17 97 99/66(85) NSR 0 (11) 9(A) , No pain 14:21:44 65 17 98 95/62(82) NSR 0 (11) 9(A) , No pain 14:25:52 64 18 98 102/70(83) NSR 0 (11) 9(A) , No pain 14:30:00 72 17 99 107/77(92) NSR 0 (11) 9(A) , No pain 14:34:16 64 18 92 82/55(75) NSR 0 (11) 9(A) , No pain 14:38:24 63 19 93 89/51(71) NSR 0 (11) 9(A) , No pain 14:42:34 61 19 93 94/56(74) NSR 0 (11) 9(A) , No pain 14:46:44 60 19 94 101/64(83) NSR 0 (11) 9(A) , No pain 14:50:56 62 18 95 96/59(89) NSR 0 (11) 9(A) , No pain 14:55:04 59 16 96 94/67(83) NSR 0 (11) 9(A) , No pain 14:59:13 60 16 93 103/61(82) NSR 0 (11) 9(A) , No pain 15:03:27 61 17 94 100/51(79) NSR 0 (11) 9(A) , No pain 15:07:37 60 18 96 96/58(77) NSR 0 (11) 9(A) , No pain Medications Time Medication Route Dose Verified Delivered Reason Note s Effectiveness by by 14:07:07 Oxygen NC 2 l/min Darvin Boston Per physician Carlton Vincent RN RN 14:07:21 Heparin Flush added 2 bags Darvin Boston used for Bag to Carlton Vincent packager machine (1000units/500ml field RN NS) 14:07:35 0.9% NaCl I.V. 100 Darvin Boston Per physician ml/hr Carlton Vincent RN RN 14:13:19 Radial Cocktail added 1 Darvin Boston used for (Verapomil to syringe Carlton Vincent packager machine 2mg/Nitro field RN 400mcg/Heparin 1500units) 14:15:02 Fentanyl I.V. 50 mcg Darvin Darvin for sedation Carlton Vincent RN RN 14:15:09 Versed I.V. 1 mg Darvin Darvin for sedation Carlton Vincent RN RN 14:30:40 Fentanyl I.V. 50 mcg Darvin Darvin for sedation Carlton Vincent RN RN 14:30:44 Versed I.V. 1 mg Darvin Darvin for sedation Carlton Vincent RN RN 14:30:54 Radial Cocktail I.A. 1 Darvin Asad for (Verapomil syringe Carlton Novak MD vasodilation 2mg/Nitro RN 400mcg/Heparin 1500units) 14:48:56 Fentanyl I.V. 50 mcg Darvin Darvin for sedation Carlton Vincent RN RN 14:53:28 Fentanyl I.V. 50 mcg Darvin Darvin for sedation Cralton Vincent RN RN 14:57:40 Heparin Bolus I.V. 9000 Darvin Darvin for units Carlton Vincent RN anticoagulation hr operations advisor Log Time Note 13:32:07 Germaine Rendon RN sent for patient. Start room use. 13:44:25 Patient Height : 15.24 cm 13:44:34 Patient Weight : 90.72 kg 13:44:42 Arrival Date: 08/04/2016 12:00:00 AM 13:44:44 Admit Source: Other 13:44:59 Insurance Payor : Medicaid 13:47:31 Lab Result : Hemoglobin 9.8 g/dl 13:47:31 Lab Result : BUN 29 mg/dl 13:47:31 Lab Result : Creatinine 1.4 mg/dl 13:47:37 Diagnostic Cath Status : Elective 13:48:10 Time tracking: Regular hours 13:48:14 Plan of Care:Hemodynamics will remain stable., Cardiac rhythm will remain stable., Comfort level will be maintained., Respiratory function will remain adequate., Patient/ family verbilizes understanding of procedure., Procedure tolerated without complication., Recovers from procedure without complications.. 13:48:22 Patient received from Pre/Post Procedure Room to [facility] 3 Alert and oriented. Tansferred to table in Supine position. 13:48:23 Warm blankets applied, and jaleesa hugger turned on for patient comfort. 13:48:24 Correct patient and procedure confirmed by team. 13:48:26 Signed procedure consent form obtained from patient. 13:48:44 H&P Date Dictated: 07/28/2016 Within 30 days and on chart., H&P Addendum completed by physician on day of procedure. (MUST COMPLETE FOR ALL OUTPATIENTS). 13:48:45 Pre-procedure instructions explained to patient. 13:48:47 Family in waiting room. 13:48:51 Patient NPO since Midnight. 13:49:19 Patient allergic to Other allergyPCN 13:49:24 Is patient on blood thinner?Yes 13:55:50 Is the patient allergic to Iodine/contrast media? No. 13:55:51 Was the patient premedicated? No 13:55:53 Patient diabetic? No. 13:56:13 Previous problem with sedation/anesthesia? Yes hard to wake 13:56:15 Snore? Yes 13:56:42 Sleep apnea? No 13:56:43 Deviated septum? No 13:56:43 Opens mouth fully? Yes 13:56:44 Sticks out tongue? Yes 13:56:46 Airway obstruction? No ? 13:56:49 Dentures? No ? 13:56:53 Pre procedure: right dorsailis pedis pulse 2+ Normal; easily identifiable; not easily obliterated 13:56:57 Patient pain scale 0/10 ?. 13:57:06 IV patent on arrival in left forearm with 0.9% NaCl at [facility]. 13:57:08 Lab results completed and on chart. 13:57:12 Right groin area was prepped with chlora-prep and draped in sterile fashion 13:57:13 Alarms reviewed by R. N. 13:57:14 Sharps counted by scrub and verified by R.N. 14:03:22 Physician paged 14:03:56 Vital chart was started 14:04:56 ECG and BP/O2 sat monitors applied to patient. 14:04:57 Baseline sample Acquired. 14:05:11 Full Disclosure recording started 14:07:07 Oxygen 2 l/min NC was administered by Darvin Vincent RN; Per physician; 14:07:21 Heparin Flush Bag (1000units/500ml NS) 2 bags added to field was administered by Darvin Vincent RN; used for procedure; 14:07:35 0.9% NaCl 100 ml/hr I.V. was administered by Darvin Vincent RN; Per physician; 14:08:36 Physician arrived 14:08:43 Use device set Radial PCI 14:08:44 Acist Syringe opened to sterile field. 14:08:45 Acist Hand Control opened to sterile field. 14:08:45 Bag Decanter opened to sterile field. 14:08:46 Medline Cath Pack opened to sterile field. 14:08:48 Merit BasixCompak Inflation Kit opened to sterile field. 14:08:48 Terumo 6Fr Slender Glidesheath opened to sterile field. 14:08:49 Acist Manifold opened to sterile field. 14:08:50 Tegaderm 4 x 4 opened to sterile field. 14:08:52 St Arsenio 260cm J .035 wire opened to sterile field. 14:09:16 Porras BMW [facility] 2 J-tip 300cm 0.014 guide wir opened to sterile field. 14:13:18 --------ALL STOP TIME OUT------ 14:13:19 Radial Cocktail (Verapomil 2mg/Nitro 400mcg/Heparin 1500units) 1 syringe added to field was administered by Darvin Vincent RN; used for procedure; 14:13:20 Final Timeout: patient, procedure, and site verified with staff and physician. All members of the team are in agreement. 14:13:23 Right Radial & Right Groin site verified by team. 14:13:27 Sedation plan: IV Moderate Sedation Versed, Fentanyl 14:15:02 Fentanyl 50 mcg I.V. was administered by Darvin Vincent RN; for sedation; 14:15:09 Versed 1 mg I.V. was administered by Darvin Vincent RN; for sedation; 14:15:44 Zero performed for pressure channel P1 14:16:09 Zero performed for pressure channel P1 14:16:45 High Pressure Extension Tubing (Kishore) opened to sterile field. 14:29:10 Cordis 6FR XBLAD 3.5 guide catheter opened to sterile field. 14:29:20 Procedure started. 14:29:38 Local anesthetic to right radial artery with Lidocaine 2% by Asad Novak MD.INITIAL ACCESS ONLY 14:30:36 A 6 Fr Short sheath was inserted into the Right Femoral artery 14:30:40 Fentanyl 50 mcg I.V. was administered by Darvin Vincent RN; for sedation; 14:30:44 Versed 1 mg I.V. was administered by Darvin Vincent RN; for sedation; 14:30:48 A 6 Fr Short sheath was inserted into the Right Radial artery 14:30:54 Radial Cocktail (Verapomil 2mg/Nitro 400mcg/Heparin 1500units) 1 syringe I.A. was administered by Asad Novak MD; for vasodilation; 14:30:57 6 Fr XBLAD 3.5 guide catheter was inserted over the wire 14:38:57 Zero performed for pressure channel P1 14:39:16 Zero performed for pressure channel P1 14:48:56 Fentanyl 50 mcg I.V. was administered by Darvin Vincent RN; for sedation; 14:51:46 Zero performed for pressure channel P1 14:51:54 Zero performed for pressure channel P1 14:52:01 Zero performed for pressure channel P1 14:53:04 Terumo 6Fr Clarkson Sheath opened to sterile field. 14:53:28 Fentanyl 50 mcg I.V. was administered by Darvin Vincent RN; for sedation; 14:54:28 6 Fr XBLAD 3.5 guide catheter was inserted over the wire 14:57:19 BMW wire advanced. 14:57:40 Heparin Bolus 9000 units I.V. was administered by Darvin Vincent RN; for anticoagulation; 14:58:49 Wire advanced across lesion. 15:02:05 Inflation Number: 1 A Innovative Cardiovascular Solutionstronic Integrity 2.5 X 18 stent was prepped and advanced across the Ramus. The stent was deployed at 12 CECI for 0:20 (min:sec). 15:02:39 Cordis 6Fr Exoseal opened to sterile field. 15:02:49 Terumo TR Band Standard opened to sterile field. 15:02:58 Wire removed. 15:02:59 Guide catheter removed. 15:03:13 Sheath removed intact; hemostasis achieved with Exoseal to the Right Femoral artery. 15:03:27 TR band inflated with 10cc of air. 15:04:01 Sheath removed intact; hemostasis achieved with Mechanical Compression to the Right Radial artery. 15:04:47 Procedure ended.(Physican Out) 15:05:45 Fluoroscopy time 02.90 minutes. 15:06:02 Fluoroscopy dose: 124 mGy 15:06:02 Flurop Dose total: 124 15:06:08 Contrast amount:Isovue 300 60ml. 15:06:10 Sharps counted by scrub and verified by R.N. 15:06:13 Insertion/operative site no bleeding no hematoma. 15:06:24 Post Procedure Pulses reassessed and unchanged 15:06:36 Post-procedure physical assessment completed. ASA score P 2 - A patient with mild systemic disease as per Asad Novak MD. 15:06:54 Post procedure rhythm: unchanged. 15:06:58 Estimated blood loss: 10 ml 15:06:59 Post procedure instruction explained to patient.Patient verbalizes understanding. 15:07:07 Procedure type changed to Cath procedure, Diagnostic procedure, LHC, LHC w/Coronaries, PCI procedure, Coronary Stent Initial, Miscellaneous Procedures, Moderate Sedation up to 15 minutes 15:07:09 Procedure and supply charges have been captured, reviewed, submitted and are correct. 15:07:41 Procedure Complication : No complications 15:07:43 Vital chart was stopped 15:07:44 See physician's report for complete and final results. 15:07:46 Report given to Pre/Post Procedure Room. 15:07:53 Patient transfered to Pre/Post Procedure Room with Stretcher. 15:07:55 Procedure ended. 15:07:55 Full Disclosure recording stopped 15:07:58 End room use (Document Last) Intervention Summary Intervention Notes Time ActionType Lesion and Equipment Action# Pressure Duration Attributes Used 15:02:[address] Place stent Ramus Medtronic 1 12 00:20 Integrity 2.5 X 18 stent Device Usage Item Name Manufacture Quantity Catalog Hospital Part Current Minimal Lot# / Number Charge Number Stock Stock Serial# Code Acist Acist 1 91669 [id number] 309817 036205 20 Syringe Medical Systems Inc Acist Hand Acist 1 03987 491365 209872 687373 5 Control Medical Systems Inc Bag Microtek 1 2002S 041171 63041 992173 5 DecCloneless Medical Inc. Medline Cardinal 1 [id number] 531549 16839 290755 5 Seriously [facility] Merit Merit 1 PH0509 565438 207464 799917 15 Talentag Medical Inflation Kit Terumo 6Fr Terumo 1 [id number] 810914 279708 532258 40 Slender Glidesheath Acist Acist 1 59529 919856 754368 161326 5 Manifold Medical Systems Inc Tegaderm 4 3M 1 1626W 851562 826657 196270 [address] Arsenio 1 258263 054808 010339 362426 30 260cm J .035 wire Porras BMW Porras 1 [id number] 278525 887472 579442 5 [facility] 2 Vascular J-tip 300cm 0.014 guide wir High Merit 1 [id number] 637655 80841 503164 10 Pressure Medical Extension Tubing (Novak) Cordis 6FR Cardinal 1 [id number] 764385 417531 719946 10 XBLAD 3.5 Health guide catheter Terumo 6Fr Terumo 1 [id number] 527530 472464 896526 40 Clarkson Sheath Medtronic Medtronic 1 [id number] 995111 077617 241992 2 [id number] Integrity 2.5 X 18 stent Cordis 6Fr Cardinal 1 EX600 280064 148109 930041 10 Exoseal Health Terumo TR Terumo 1 [id number] 067491 254018 535776 40 Band Standard Signature Audit [employer] Stage Time Signature Unsigned Intra-Procedure 08/04/2016 Grisel Magdaleno 3:10:23 PM RT(R) Signatures Monitor : Grisel Magdaleno Signature : RT Date : Time : [id number] [place] [address]
[~2016-08-04 11:56] MED LIST changes: -ENTRESTO 24 MG1 EACH PO; -FENOFIBRATE134 MG PO; -FLUTICASONE PRO16 GM NASAL; -LASIX40 MG PO; -NITROQUICK0.4 MG SL; -PACERONE200 MG PO; -PROTONIX40 MG PO; -SYNTHROID112 MCG PO; -ULTRAM50 MG PO; -VITAMIN D5000 UNIT PO; -XARELTO15 MG PO; -ZOFRAN4 MG PO
[2016-08-04] MEDS ORDERED: FENOFIBRATE134 MG PO (13:13)
[2016-08-04] MEDS ORDERED: SYNTHROID112 MCG PO (13:13)
[2016-08-04] MEDS ORDERED: PLAVIX75 MG PO (13:14)
[2016-08-04] MEDS ORDERED: VITAMIN D5000 UNIT PO (13:15)
[2016-08-04] MEDS ORDERED: PACERONE200 MG PO (13:17)
[2016-08-04] MEDS ORDERED: ULTRAM50 MG PO (13:18)
[2016-08-04] MEDS ORDERED: ZOFRAN4 MG PO (13:19)
[2016-08-04] MEDS ORDERED: XARELTO15 MG PO (13:19)
[2016-08-04] MEDS ORDERED: PROTONIX40 MG PO (13:20)
[2016-08-04 13:22] VITALS: BP 120/76; Ht 154.9 cm; Wt 88.2 kg
[2016-08-04 13:33] LABS: BASOPHILS 0.4 % (0.0-2.0); EOSINOPHILS 0.9 % (0-7); HEMOGLOBIN 9.8 g/dL (12-16); IMMATURE GRANULOCYTES 0.2 % (0-5); LYMPHOCYTES 22.2 % (15-50); MCH 27.2 pg (26.0-34.0); MCHC 31.6 g/dL (31.0-37.0); MCV 86.1 fL (80.0-100.0); MEAN PLATELET VOLUME 9.5 fL (7.4-10.4); MONOCYTES 9.6 % (2-11); NEUTROPHILS 66.7 % (40-80); PLATELET COUNT 266 10x3/uL (130-400); RDW 17.4 % (11.5-14.5); WBC 4.6 10x3/uL (4.8-10.8)
[2016-08-04 13:46] LABS: ANION GAP 16.3 mmol/L (8-16); CALCIUM 8.3 mg/dL (8.5-10.1); CARBON DIOXIDE 23.5 mmol/L (21.0-32.0); CREATININE - SERUM 1.5 mg/dL (0.6-1.3); POTASSIUM - SERUM 3.8 mmol/L (3.5-5.1)
--- NOTE | 2016-08-04 18:22 | NUR ---
1545-RIGHT GROIN CDI, NO HEMATOMA OR BLEEDING, SOFT TO TOUCH, RESTING WITH FAMILY AT SIDE 1615-NO CHANGES IN RIGHT GROIN
--- NOTE | 2016-08-04 18:25 | NUR ---
1525-TR BAND TO RIGHT WRIST CDI, NO BLEEDING
--- NOTE | 2016-08-04 20:03 | NUR ---
1830-2CC AIR OUT OF TR BAND- NO BLEEDING 1845-2CC OUT- NO BLEEDING 1900-3CC OUT OF TR BAND- BLEEDING NOTED- 4CC AIR IN TR BAND 1915-2CC OUT OF TR BAND- NO BLEEDING, RIGHT GROIN CDI, NO HEMATOMA OR BLEEDING NOTED 1924-1-2CC AIR OUT- NO BLEEDING, IV D'C WITH CATH TIP INTACT. UP TO DRESS, NO DISTRESS NOTED 1939- ALL AIR OUT OF TR BAND BAND AID APPLIED- NO BLEEDING. 2000-D'C TO HOME WITH SON, INSTRUCTIONS GIVEN AND UNDERSTOOD. DENIES FURNADIYA NEEDS
== END 2016-08-04 20:00 | disposition home or self-care (01) ==
LOC: D.CATH 11:56
PROVIDERS: Internal Medicine Cardiovascular Disease
DX: I25.10 Atherosclerotic heart disease of native coronary artery without angina pectoris (principal)

== ENCOUNTER 2016-08-09 12:51 | Inpatient (IN) | payer MEDICARE, OTHER ==
[~2016-08-09] VITALS: Ht 154.9 cm; Wt 87.4 kg
[~2016-08-09 12:51] MED LIST changes: +FENOFIBRATE134 MG PO; +PACERONE200 MG PO; +PROTONIX40 MG PO; +SYNTHROID112 MCG PO; +ULTRAM50 MG PO; +VITAMIN D5000 UNIT PO; +XARELTO15 MG PO; +ZOFRAN4 MG PO
--- NOTE | 2016-08-09 13:06 | NUR ---
TRANSFER FROM ADMISSIONS BY W/C. OREINTED TO ROOM. CALL LIGHT IN REACH. WILL CONT. PLAN OF CARE.
[2016-08-09 13:25] VITALS: BP 123/87; BMI 37.5
--- NOTE | 2016-08-09 14:00 | NUR ---
IV STARTED TO RIGHT HAND WITH 22 GAUGE CATH X 1 STICK BY JOSE E HIRSCH. LINE IS PATENT.
--- NOTE | 2016-08-09 14:16 | NUR ---
LAB DRAWN. EKG COMPLETED. BR UP. LESLYE DAN.
--- NOTE | 2016-08-09 14:16 | NUR ---
BED REST UP. GROIN STABLE. LAB DRAWN. EKG COMPLETED.
[2016-08-09 14:27] LABS: CALCIUM 9.1 mg/dL (8.5-10.1); CARBON DIOXIDE 27.1 mmol/L (21.0-32.0); CREATININE - SERUM 1.6 mg/dL (0.6-1.3); POTASSIUM - SERUM 4.1 mmol/L (3.5-5.1)
--- NOTE | 2016-08-09 15:03 | NUR ---
IV AND TELEMETRY DCD. DC PLANS GIVEN. UNDERSTANDING VOICED. ESCORTED TO CAR BY W/C.
[2016-08-09 16:12] VITALS: BP 159/72
--- NOTE | 2016-08-09 19:00 | NUR ---
INITIAL ROUNDS MADE. PT SITTING UP IN BED WITH FAMILY AT BEDSIDE. PT DENIES NEEDS OR C/O AT THIS TIME. BUMEX AND DOBUTREX GTT INFUSING ORDERED. COLLECTION CONTAINER IN COMMODE FOR MEASURING. WILL CONT TO MONITOR.
[2016-08-09 20:00] VITALS: BP 106/68
[2016-08-10] VITALS: BP 115/65
--- NOTE | 2016-08-10 00:02 | NUR ---
STATION INSTALLATION SUPERVISOR AT BEDSIDE FOR VS. NEEDS ADDRESSED. CALL LIGHT IN REACH. WILL CONT TO MONITOR.
[2016-08-10 04:00] VITALS: BP 108/66
[2016-08-10 07:58] VITALS: BP 109/68
[2016-08-10 11:25] VITALS: BP 110/71
[2016-08-10 12:22] VITALS: Ht 154.9 cm; Wt 87.4 kg
[2016-08-10 16:08] VITALS: BP 110/73
--- NOTE | 2016-08-10 19:30 | NUR ---
ASSESSMENT COMPLETE. SEE SHEET, UP AD PRESTON W/O DIFF. TELEMETRY IN PLACE SHOWING HR SR BBB. DOBUTREX GTT AT 8.7CC/HR VIA PUMP TO RT HAND WITH NO R/S NOTED AT SITE. RESP UNLAB. HOB UP SR UP X2, C/L IN REACH. CONTINUE TO MONITOR.
[2016-08-10 20:00] VITALS: BP 106/73
[2016-08-11] VITALS: BP 105/67
--- NOTE | 2016-08-11 00:12 | NUR ---
EYES CLOSED, RESP EVEN AND UNLAB. NO S/S OF ACUTE DISTRESS NOTED. C/L IN REACH.
[2016-08-11 04:00] VITALS: BP 103/68
[2016-08-11 07:54] VITALS: BP 108/71
[2016-08-11] MEDS ORDERED: FLUTICASONE PRO16 GM NASAL (09:44)
[2016-08-11] MEDS ORDERED: LASIX40 MG PO (09:44)
[2016-08-11] MEDS ORDERED: NITROQUICK0.4 MG SL (09:45)
[2016-08-11] MEDS ORDERED: ENTRESTO 24 MG1 EACH PO (09:47)
--- NOTE | 2016-08-11 10:09 | NUR ---
Patient Name: CORINE SALCIDO Admission Status: Elective Accout number: [id number] Admission Date: 08-10-2016 : 1945 Admission Diagnosis: Attending: JASON Current LOS: 1 Anticipated DC Date: 08-11-2016 Planned Disposition: Home Primary Insurance: MEDICARE A & B Discharge Planning Comments: * Is the patient Alert and Oriented? Yes 0 * How many steps to enter\exit or inside your home? 2 0 * PCP DR. GOLDEN 0 * Pharmacy [facility] 0 * Preadmission Environment Home with Family 0 * ADLs Independent 0 * Equipment None 0 * Other Equipment [facility] [place] - MEDICAL EQUIPMENT PROVIDER PREFERENCE 0 * List name and contact numbers for known caregivers / representatives who currently or will assist patient after discharge: CHARLES SALCIDO, SPOUSE, 0 * Community resources currently utilized None 0 * Please name any agencies selected above. NONE 0 * Additional services required to return to the preadmission environment? No 0 * Can the patient safely return to the preadmission environment? Yes 0 * Has this patient been hospitalized within the prior 30 days at any hospital? Yes 0 CM MET WITH PT IN ROOM TO DISCUSS DISCHARGE PLANNING AND NEEDS. PT REPORTS LIVING AT HOME INDEPENDENTLY WITH FAMILY. PT HAS NO MEDICAL EQUIPMENT AND NO OUTSIDE SERVICES ASSISTING IN THE HOME. CM DISCUSSED AVAILABILITY OF HOME HEALTH, REHAB SERVICES AND MEDICAL EQUIPMENT. PT DENIES DISCHARGE NEEDS, REPORTS HER DAUGHTER IS HERE TO PICK HER UP FOR DISCHARGE HOME TODAY. IMPORTANT MESSAGE FROM MEDICARE PROVIDED AND EXPLAINED. Probation Supervisor: Mike Saleh
--- NOTE | 2016-08-11 10:24 | NUR ---
IV AND TELEMETRY DCD. DC PLANS GIVEN. UNDERSTANDING VOICED. ESCORTED TO CAR BY W/C.
--- NOTE | 2016-08-11 12:49 | EC ---
PATIENT:CORINE SALCIDO DATE OF SERVICE: 08/10/16 SEX: F MEDICAL RECORD: [id number] DATE OF : [birth year] LOCATION:D. D.212 AGE OF PATIENT: 71 ADMISSION DATE: 08/10/16 REFERRING PHYSICIAN: INTERPRETING PHYSICIAN: GO NOVAK M.D. ECHOCARDIOGRAM REPORT ECHO CHARGES 4 ECHO COMPLETE CLINICAL DIAGNOSIS: CARDIOMYOPATHY ECHOCARDIOGRAPHIC MEASUREMENTS (adult normal given) AC root (d.<3.7cm) 3.3 LV Septum d (<1.2 cm> 1.4 Valve Excursion 1.5 LV Septum (systole) 1.7 Left Atria (s.<4.0cm> 38 LVPW d(<1.2cm) 1.6 RV (d.<2.3cm) 3.4 LVPW (sytole) 1.4 LV diastole(<5.6CM) 6.6 MV E-F(>70mm/sec) LV systole 5.5 LVOT Diameter 1.9 MV exc.(>10mm) 2.0 Est.ejection fraction (50-75%) Pericardial Effusion N DOPPLER: LVIT A 76.0 E 62.0 LA RVSP 23 LVOT 95 AOP1/2T Asc. Ao 155 RVOT 133 RA PA 147 AV Gradient Peak 9.63 AV Mean 4.05 AV Area 1.6 MV Gradient Peak 4.0 MV Mean 1.33 MV Area COMMENTS: Plastics Heat Welder: Aruna JURADO Polysomnography Technician:2 Dr. Novak TAPE# PACS DATE OF SERVICE: 08/10/2016 INDICATION: Congestive heart failure. DESCRIPTION: Left ventricle is mildly dilated. The apex and distal septum are hypokinetic. Estimated ejection fraction is in the order of 30% to 35%. Mitral valve is structurally normal. There is mild to moderate regurgitation noted. Left atrium is normal size. The aortic valve leaflets are thickened. There is trivial insufficiency seen, but no evidence of stenosis. Right ventricle is mildly dilated. Tricuspid valve is structurally normal. There is mild ECHOCARDIOGRAM REPORT [id number] CORINE SALCIDO regurgitation noted. Right atrium is normal size. There is no pericardial effusion seen. IMPRESSION: 1. Moderate left ventricular dysfunction with ejection fraction of 30% to 35% with apical hypokinesis. 2. Mild to moderate mitral regurgitation. 3. Aortic valve sclerosis without stenosis. 4. Mild tricuspid regurgitation. TRANSINT:[id number] Voice Confirmation ID: [id number] DOCUMENT ID: [id number] GO NOVAK M.D. at 1249 CC: [id number] DICTATION DATE: 08/10/16 1341 FIELD ASSESSOR: 08/10/16 1704 DIS IN 08/11/16 [facility] [address] [id number]
== END 2016-08-11 10:27 | disposition home or self-care (01) | DRG 292 ==
LOC: D.M2 12:51 → OBSVTIME 12:52 → D.M2 08-10 15:13
PROVIDERS: ADMIT Internal Medicine Cardiovascular Disease
DX: I50.21 Acute systolic (congestive) heart failure (principal); I42.9 Cardiomyopathy, unspecified; I25.2 Old myocardial infarction

== ENCOUNTER → 2017-05-25 06:51 | Outpatient (CLI) | payer MEDICARE, OTHER ==
[2016-08-10 12:22] VITALS: BMI 37.5
[~2017-05-25 06:51] MED LIST changes: +ENTRESTO 24 MG1 EACH PO; +FLUTICASONE PRO16 GM NASAL; +LASIX40 MG PO; +NITROQUICK0.4 MG SL
== END | disposition home or self-care (01) ==
LOC: D.US 06:51
DX: I12.9 Hypertensive chronic kidney disease with stage 1 through stage 4 chronic kidney disease, or unspecified chronic kidney disease (principal); N18.4 Chronic kidney disease, stage 4 (severe)

== ENCOUNTER → 2017-06-22 10:13 | Outpatient (CLI) | payer MEDICARE, OTHER ==
[2016-08-10 12:22] VITALS: BMI 37.5
== END | disposition home or self-care (01) ==
LOC: D.US 06-21 15:00
DX: Z68.37 Body mass index [BMI] 37.0-37.9, adult (principal); Z68.36 Body mass index [BMI] 36.0-36.9, adult

== ENCOUNTER → 2019-01-29 16:57 | Outpatient (CLI) | payer MEDICARE, OTHER ==
[2016-08-10 12:22] VITALS: BMI 37.5
[2019-01-29 17:12] LABS: ALBUMIN 3.8 g/dL (3.4-5.0); ANION GAP 9.4 mmol/L (8-16); BILIRUBIN - TOTAL 0.38 mg/dL (0.2-1.3); CALCIUM 8.8 mg/dL (8.5-10.1); CARBON DIOXIDE 32.7 mmol/L (21.0-32.0); CREATININE - SERUM 1.7 mg/dL (0.6-1.3); POTASSIUM - SERUM 4.1 mmol/L (3.5-5.1); PROTEIN - SERUM 7.1 g/dL (6.4-8.2)
== END | disposition home or self-care (01) ==
LOC: D.LABREF 16:57
PROVIDERS: ATTEND Nurse Practitioner Adult Health
DX: I42.9 Cardiomyopathy, unspecified (principal)

== ENCOUNTER → 2019-04-23 08:00 | Outpatient (CLI) | payer MEDICARE, OTHER ==
[2016-08-10 12:22] VITALS: BMI 37.5
== END | disposition home or self-care (01) ==
LOC: D.HCCECHO 08:00
PROVIDERS: ATTEND Internal Medicine Cardiovascular Disease
DX: I25.10 Atherosclerotic heart disease of native coronary artery without angina pectoris (principal); I34.0 Nonrheumatic mitral (valve) insufficiency

== ENCOUNTER 2019-06-13 11:12 | Outpatient (CLI) | payer MEDICARE, OTHER ==
[~2019-06-13] VITALS: Ht 149.9 cm; Wt 93.2 kg
--- NOTE | ~2019-06-13 | HEMODYNAMI ---
PATIENT:CORINE SALCIDO MEDICAL RECORD: [id number] : 41 LOCATION:[facility] ADMISSION DATE: 06/13/19 Generatedon:06/13/201914:49 Patient name: CORINE SALCIDO Patient #: [id number] SSN: [id number] : 1945 Date of study: 06/13/2019 Page: Of Hemodynamic Procedure Report Patient Data Patient Demographics Procedure consent was obtained First Name: CORINE Gender: Female Last Name: LOLY : 1945 [facility] Initial: RENÉE Age: 74 year(s) Patient #: [id number] Race: Unknown SSN: [id number] Additional ID: [id number] Contact details Address: [address] [place] [address] State: [place] City: [place] Zip code: [address] Past Medical History Allergies Allergen Reaction Date Comments Reported Penicillins 07/11/2016 Other allergy 08/04/2016 PCN Other allergy 06/13/2019 PCN Admission Admission Data Admission Date: 06/13/2019 Admission Time: 11:12 Arrival Date: 06/13/2019 Arrival Time: 0:00 Admit Source: Other Insurance Payor: Medicare HIC #: [id number] Height (in.): 6 BSA: 0.36 (m2) Height (cm.): 15.24 BMI: 4003.59 (kg/m2) Weight (lbs.): 205 Weight (kg.): 92.99 Lab Results Lab Result Date: 06/13/2019 Lab Result Time: 0:00 Biochemistry Name Units Result Min Max BUN mg/dl 31 --(----)-* 7 18 Creatinine mg/dl 1.3 --(---*)-- 0.6 1.3 CBC Name Units Result Min Max Hemoglobin g/dl 11.9 *-(----)-- 13.5 17.5 Procedure Procedure Types Cath Procedure Diagnostic Procedure LHC LHC w/Coronaries Sedation Charges Moderate Sedation up to 15 minutes Procedure Description Procedure Date Procedure Date: 06/13/2019 Procedure Start Time: 14:25 Procedure End Time: 14:47 Procedure Staff Name Function Asad Novak MD Performing Physician Grisel Magdaleno RT Monitor Paul Wilkes RN Nurse Lacey Rick RT Scrub Indication Chest pain Procedure Data Cath Procedure Fluoroscopy Diagnostic fluoroscopy Total fluoroscopy Time: 3.2 time: 3.2 min min Diagnostic fluoroscopy Total fluoroscopy dose: 511 dose: 511 mGy mGy Contrast Material Contrast Material Type Amount (ml) Isovue 300 72 Entry Location Entry Primary Successful Side Size Upsize Upsize Entry Closure Succes sful Closure Location (Fr) 1 (Fr) 2 (Fr) Remarks Device Remarks Femoral Right 5 Fr artery Femoral Right 5 Fr Exoseal artery Estimated blood loss: 10 ml Diagnostic catheters Device Type Used For End Catheter Placement MULTIPACK JL 4.0 5Fr Procedure catheter MULTIPACK 3DRC 5Fr catheter MULTIPACK Pigtail 5 Fr Ventriculography catheter Procedure Complications No complications Procedure Medications Medication Administration Route Dosage 0.9% NaCl I.V. 100 ml/hr Oxygen etCO2 Nasal cannula 2 l/min Heparin Flush Bag added to field 2 bags (1000units/500ml NS) Lidocaine 2% added to field 20 Versed I.V. 2 mg Fentanyl I.V. 100 mcg Versed I.V. 1 mg Hemodynamics Rest BSA: 0.36 (m2) O2 Consumption: Estimated: 33.37 (ml/min) O2 Consumption indexed: Estimated:92.69 (ml/min/m) Heart Rate: 75 (bpm) Pressure Samples Time Site Value (mmHg) Purpose Heart Use Rate(bpm) 14:43 LV 108/6,14 Snapshot 75 14:44 AO 96/56(74) Pullback 74 14:44 LV 97/5,11 Pullback 74 Gradients Valve Time Site 1 Site 2 Mean SEP/DFP Peak To Heart Use (mmHg) (sec/min) Peak Rate (mmHg) (bpm) Aortic 14:44 LV AO 6 15 1 74 97/5,11 96/56(74) Calculations Valve P-P Mean Valve Index Valve Source Name Gradient Area Flow (cm2) Aortic 1 6 1 6 Snapshots Pre Cath Intra NCS Post Cath Vital Signs Time Heart Resp SPO2 etCO2 NIBP Rhythm Pain Sedation Rate (ipm) (%) (mmHg) (mmHg) Status Level (bpm) 14:17:45 72 16 89 37 107/66(85) NSR 0 (11) 10(A) , No pain 14:21:49 69 15 99 35.5 118/75(90) NSR 0 (11) 10(A) , No pain 14:26:01 71 13 99 23.4 105/65(81) NSR 0 (11) 10(A) , No pain 14:30:02 82 11 100 32.5 92/53(74) NSR 0 (11) 10(A) , No pain 14:34:02 68 20 98 31.7 98/73(87) NSR 0 (11) 10(A) , No pain 14:38:08 70 14 98 32.5 101/61(87) NSR 0 (11) 9(A) , No pain 14:43:07 74 14 99 35.5 Measuring NSR 0 (11) 9(A) , No pain 14:43:13 75 14 99 35.5 98/64(84) NSR 0 (11) 9(A) , No pain 14:47:15 74 15 100 34.8 116/74(93) NSR 0 (11) 10(A) , No pain Medications Time Medication Route Dose Verified Delivered Reason Notes Eff ectiveness by by 14:16:15 0.9% NaCl I.V. 100 Paul Paul Per ml/hr Chung Wilkes physician RN RN 14:16:23 Oxygen etCO2 2 Paul Paul for low 02 Nasal l/min Lorigan Lorigan sats cannula RN RN 14:16:33 Heparin Flush added 2 Paul Paul used for Bag to bags Lorigan Chung procedure (1000units/500ml field RN RN NS) 14:16:48 Lidocaine 2% added 20ml Paul Paul for local to vial Lorigan Lorigan anesthetic field RN RN 14:26:58 Versed I.V. 2 mg Paul Paul for Lorigan Lorigan sedation RN RN 14:27:07 Fentanyl I.V. 100 Paul Paul for mcg Lorigan Lorigan sedation RN RN 14:31:53 Versed I.V. 1 mg Paul Paul for Lorigan Lorigan sedation RN correctional officer sergeant Log Time Note 14:02:24 Arrival Date: 06/13/2019 12:00:00 AM 14:02:43 Admit Source: Other 14:02:48 Insurance Payor : Medicare 14:02:59 Patient Height : 6 inches 14:03:03 Patient Weight : 205 lbs 14:06:09 Lab Result : Hemoglobin 11.9 g/dl 14:06:09 Lab Result : Creatinine 1.3 mg/dl 14:06:09 Lab Result : BUN 31 mg/dl 14:06:25 Procedure type changed to Cath procedure, Diagnostic procedure, LHC, LHC w/Coronaries, Sedation Charges, Moderate Sedation up to 15 minutes 14:07:04 Indication : Chest pain 14:07:17 Procedure Status Elective Heart Cath (OP). 14:07:20 aPul Wilkes RN sent for patient. Start room use. 14:07:21 Time tracking: Regular hours (M-F 7:00 - 5:00) 14:07:25 Plan of Care:Hemodynamics will remain stable., Cardiac rhythm will remain stable., Comfort level will be maintained., Respiratory function will remain adequate., Patient/ family verbilizes understanding of procedure., Procedure tolerated without complication., Recovers from procedure without complications.. 14:07:38 Patient received from Pre/Post Procedure Room to CCL 2 Alert and oriented. Tansferred to table in Supine position. 14:07:41 Signed procedure consent form obtained from patient. 14:07:43 Warm blankets applied, and jaleesa hugger turned on for patient comfort. 14:07:44 Correct patient and procedure confirmed by team. 14:07:55 H&P Date Dictated: 06/07/2019 Within 30 days and on chart., H&P Addendum completed by physician on day of procedure. (MUST COMPLETE FOR ALL OUTPATIENTS). 14:07:58 Pre-procedure instructions explained to patient. 14:08:01 Family in waiting room. 14:08:03 Patient NPO since Midnight. 14:08:16 Patient allergic to Other allergyPCN 14:08:26 Is the patient allergic to Iodine/contrast media? No. 14:08:27 Was the patient premedicated? Yes 14:08:35 Is patient on blood thinner?No 14:08:44 Patient diabetic? No. 14:08:48 Snore? Yes 14:08:49 Sleep apnea? No 14:08:56 Patient pain scale 0/10 ?. 14:09:04 IV patent on arrival in left forearm with 0.9% NaCl at [facility]. 14:09:10 Lab results completed and on chart. 14:09:32 Stress Test: yes; abnormal fixed anterior 14:10:26 Risk of blood transfusion: 1.5 14:10:29 Risk of KEYANA: 2.0 14:10:34 Right groin area was prepped with chlora-prep and draped in sterile fashion 14:10:35 Alarms reviewed by R. N. 14:10:35 Sharps counted by scrub and verified by R.N. 14:10:36 Physician paged 14:11:49 Use device set Femoral Dx 14:11:51 ACIST Syringe (12924) opened to sterile field. 14:11:52 Bag Decanter (2002S) opened to sterile field. 14:11:52 Medline Cath Pack ([id number]) opened to sterile field. 14:11:54 ACIST Hand Control (45606) opened to sterile field. 14:11:55 ACIST Manifold (78147) opened to sterile field. 14:11:58 Tegaderm 4 x 4 (1626W) opened to sterile field. 14:11:59 SHEATH 5FR [place] (JSH077) opened to sterile field. 14:12:00 EMERALD Guide Wire (286-073) opened to sterile field. 14:16:15 0.9% NaCl 100 ml/hr I.V. was administered by Paul Wilkes RN; Per physician; Verbal order read back and verified. 14:16:23 Oxygen 2 l/min etCO2 Nasal cannula was administered by Paul Wilkes RN; for low 02 sats; Verbal order read back and verified. 14:16:33 Heparin Flush Bag (1000units/500ml NS) 2 bags added to field was administered by Paul Wilkes RN; used for procedure; Verbal order read back and verified. 14:16:41 Vital chart was started 14:16:48 Lidocaine 2% 20ml vial added to field was administered by Paul Wilkes RN; for local anesthetic; Verbal order read back and verified. 14:17:18 DIAGNOSTIC Multipack 5Fr catheter set ([id number]) opened to sterile field. 14:17:30 Physician arrived 14:17:31 --------ALL STOP TIME OUT------ 14:17:31 Final Timeout: patient, procedure, and site verified with staff and physician. All members of the team are in agreement. 14:17:33 Right groin site verified by team. 14:17:36 Fire Safety Assessment: A--An alcohol-based skin anteseptic being used preoperatively., C--Open oxygen or nitrous oxide is being used., D--An ESU, laser, or fiber-optic light is being used. 14:17:40 Physical assessment completed. ASA score P 3 - A patient with severe systemic disease as per Asad Novak MD. 14:17:50 3b) 30-44 Moderately reduced kidney function. 14:18:41 Maximum allowable contrast dose (3.7 X eGFR X 0.75)116 ml. 14:18:50 Sedation plan: IV Moderate Sedation Medication:Versed, Fentanyl 14:25:17 Procedure started. 14:25:18 Full Disclosure recording started 14:25:52 Local anesthetic to right femoral artery with Lidocaine 2% by Asad Novak MD.INITIAL ACCESS ONLY 14:26:04 A 5 Fr sheath was inserted into the Right Femoral vein 14::39 A 5 Fr sheath was inserted into the Right Femoral artery 14::58 Versed 2 mg I.V. was administered by Paul Wilkes RN; for sedation; Verbal order read back and verified. 14:27:07 Fentanyl 100 mcg I.V. was administered by Paul Wilkes RN; for sedation; Verbal order read back and verified. 14:31:53 Versed 1 mg I.V. was administered by Paul Wilkes RN; for sedation; Verbal order read back and verified. 14:37:27 A MULTIPACK JL 4.0 5Fr catheter was advanced over the wire and used for Procedure. 14:37:31 LCA angiography performed. 14:39:07 Catheter removed. 14:39:19 A MULTIPACK 3DRC 5Fr catheter was advanced over the wire and used for . 14:39:22 Zero performed for pressure channel P1 14:39:26 Zero performed for pressure channel P1 14:39:40 RCA angiography performed. 14:42:56 Catheter removed. 14:43:03 A MULTIPACK Pigtail 5 Fr catheter was advanced over the wire and used for Ventriculography. 14:43:08 LV gram done using QUINTERO 14:44:06 EF : 20 % 14:44:59 EXOSEAL 5Fr (EX500) opened to sterile field. 14:45:03 Catheter removed. 14:45:14 Sheath removed intact; hemostasis achieved with Exoseal to the Right Femoral artery. 14:45:16 Procedure ended.(Physican Out) 14:45:29 Fluoroscopy time 03.20 minutes. 14:45:33 Fluoroscopy dose: 511 mGy 14:45:33 Flurop Dose total: 511 14:45:39 Dose Area Product 02321 mGy/cm. 14:46:13 Contrast amount:Isovue 300 72ml. 14:46:16 Maximum allowable dose exceeded? No. 14:46:19 Sharps counted by scrub and verified by R.N. 14:46:20 Insertion/operative site no bleeding no hematoma. 14:46:25 Post-op/insertion site Right Femoral artery dressed using a 4 x 4 and Tegaderm. 14:46:26 Post Procedure Pulses reassessed and unchanged 14:46:33 Post-procedure physical assessment completed. ASA score P 3 - A patient with severe systemic disease as per Asad Novak MD. 14:46:35 Post procedure rhythm: unchanged. 14:46:38 Estimated blood loss: 10 ml 14:46:39 Post procedure instruction explained to patient.Patient verbalizes understanding. 14:46:57 Procedure and supply charges have been captured, reviewed, submitted and are correct. 14:47:14 Procedure Complication : No complications 14:47:17 Vital chart was stopped 14:47:25 [facility] Findings: mild to moderate CAD (<70%) 14:47:27 See physician's report for complete and final results. 14:47:29 Report given to Pre/Post Procedure Room. 14:47:33 Patient transfered to Pre/Post Procedure Room with Stretcher. 14:47:35 Procedure ended. 14:47:35 Full Disclosure recording stopped 14:47:41 End room use (Document Last) 14:48:18 End room use (Document Last) 14:48:55 End room use (Document Last) Device Usage Item Name Manufacture Quantity Catalog Hospital Part Current Minimal L ot# / Number Charge Number Stock Stock Serial# Code ACIST Acist 1 27146 697668 [id number] [id number] 20 Embo Medical (36994) Captify Inc Bag Microtek 1 2001S 119425 12726 487920 5 Decanter Medical Inc. (2001S) Medline Medline 1 [id number] 16158 289599 5 Cath Pack ([id number]) ACIST Hand Acist 1 83055 590743 697595 338033 5 Control Medical (87687) Systems Inc ACIST Acist 1 10977 258351 477363 178729 5 Manifold Medical (94129) Systems Inc Tegaderm 4 3M 1 1626W 999091 619598 932715 5 x 4 (1626W) SHEATH 5FR Terumo 1 NEW830 118813 233878 672247 5 [place] (WAX681) EMERALD Cardinal 1 502-945 892987 908820 481421 5 Guide Wire Health (502-698) DIAGNOSTIC Cardinal 1 [id number] 897250 97752 945287 30 Multipack Health 5Fr catheter set (BD1570) MULTIPACK Cardinal 1 978023 5 JL 4.0 5Fr Health catheter MULTIPACK Cardinal 1 373257 5 3DRC 5Fr Health catheter MULTIPACK Cardinal 1 520979 5 Pigtail 5 Health Fr catheter EXOSEAL 5Fr Cardinal 1 EX500 444684 187046 609714 10 (EX500) Health Signature Audit Ward Stage Time Signature Unsigned Intra-Procedure 06/13/2019 Grisel Magdaleno 2:48:18 PM RT(R) Intra-Procedure 06/13/2019 Paul 2:48:55 PM Chung HIRSCH Intra-Procedure 06/13/2019 Asad Novak MD 2:49:50 PM Signatures Performing Physician : Signature : Asad Novak MD Date : Time : Monitor : Grisel Magdaleno Signature : RT Date : Time : Nurse : Paul Wilkes Signature : RN Date : Time : [place] [address] [place] [address]
[2019-06-13] MEDS ORDERED: COREG6.25 MG PO (12:28)
[2019-06-13 12:36] VITALS: BP 130/77; Ht 149.9 cm; Wt 93.2 kg
[2019-06-13 13:05] LABS: BASOPHILS 0.6 % (0-2); EOSINOPHILS 4.4 % (0-7); HEMATOCRIT 36.3 % (36.0-48.0); HEMOGLOBIN 11.9 g/dL (12-16); IMMATURE GRANULOCYTES 0.6 % (0-5); LYMPHOCYTES 35.6 % (15-50); MCHC 32.8 g/dL (31.0-37.0); MCV 94.5 fL (80.0-100.0); MEAN PLATELET VOLUME 10.1 fL (7.4-10.4); MONOCYTES 7.8 % (2-11); PLATELET COUNT 231 10x3/uL (130-400); RBC 3.84 10x6/uL (4.00-5.40); RDW 14.1 % (11.5-14.5)
[2019-06-13 13:20] LABS: ANION GAP 9.7 mmol/L (8-16); CALCIUM 9.1 mg/dL (8.5-10.1); CARBON DIOXIDE 29.4 mmol/L (21.0-32.0); CHOL - HDL RATIO 3.5 ratio (2.3-4.1); CREATININE - SERUM 1.3 mg/dL (0.6-1.3); LDL-HDL RATIO 2.1 ratio (1.5-3.5); POTASSIUM - SERUM 4.1 mmol/L (3.5-5.1)
--- NOTE | 2019-06-13 15:00 | NUR ---
PT ARRIVED BY STRETCHER. PLACED ON MONITORS. ASSESSMENT COMPLETED. DR. MITCHELL AT BEDSIDE SPEAKING WITH PT'S FAMILY.
--- NOTE | 2019-06-13 15:15 | NUR ---
RIGHT GROIN DRESSING C/D/I. NO S/S OF HEMATOMA NOTED. CALL LIGHT WITHIN REACH. VSS. FAMILY AT BEDSIDE. PT RESTING COMFORTABLY.
--- NOTE | 2019-06-13 15:45 | NUR ---
RIGHT GROIN DRESSING C/D/I. NO S/S OF HEMATOMA NOTED. CALL LIGHT WITHIN REACH. FAMILY AT BEDSIDE. NO NEEDS AT THIS TIME. VSS.
--- NOTE | 2019-06-13 16:00 | NUR ---
RIGHT GROIN DRESSING C/D/I. NO S/S OF HEMATOMA NOTED. CALL LIGHT WITHIN REACH. FAMILY AT BEDSIDE. HEAD OF BED INC TO 30 DEGREES. TOLERATED WELL. SET UP WITH SANDWICH TRAY AND DRINK.
--- NOTE | 2019-06-13 16:30 | NUR ---
VSS. RIGHT GROIN DRESSING C/D/I. RIGHT LEG WARM TO TOUCH. PPP. CALL LIGHT WITHIN REACH. NO NEEDS AT THIS TIME.
--- NOTE | 2019-06-13 17:00 | NUR ---
RIGHT GROIN DRESSING C/D/I. NO S/S OF HEMATOMA NOTED. PIV D/C'D WITH CATH TIP INTACT. TOLERATED WELL. DISCUSSED DISCHARGE INSTRUCTIONS WITH PT AND PT'S FAMILY. THEY VOICED UNDERSTANDING.
--- NOTE | 2019-06-13 17:15 | NUR ---
PT AMUBLATED TO RESTROOM. STEADY GAIT NOTED. VOIDED WITHOUT DIFFICULTY.
--- NOTE | 2019-06-13 17:30 | NUR ---
RIGHT GROIN DRESSING C/D/I. NO S/S OF HEMATOMA NOTED. PT TAKEN OUT TO VEHICLE BY WHEELCHAIR. NO S/S OF DISTRESS NOTED. ALL BELONGINGS AND PAPERWORK IN HAND.
== END 2019-06-13 17:30 | disposition home or self-care (01) ==
LOC: D.CATH 11:12
PROVIDERS: ATTEND Internal Medicine Cardiovascular Disease
DX: I25.5 Ischemic cardiomyopathy (principal); I10 Essential (primary) hypertension; E03.9 Hypothyroidism, unspecified; I48.91 Unspecified atrial fibrillation; I25.2 Old myocardial infarction; I25.10 Atherosclerotic heart disease of native coronary artery without angina pectoris; R06.02 Shortness of breath

== ENCOUNTER 2020-02-03 11:24 | Emergency (ER) | payer MEDICARE, OTHER ==
[~2020-02-03] VITALS: Ht 149.9 cm; Wt 90.9 kg
[~2020-02-03 11:24] MED LIST changes: +COREG6.25 MG PO
[2020-02-03 11:33] VITALS: Ht 149.9 cm; Wt 90.9 kg
[2020-02-03 12:13] LABS: BASOPHILS 0 % (0-2); EOSINOPHILS 2.5 % (0-7); HEMATOCRIT 31.6 % (36.0-48.0); HEMOGLOBIN 10.4 g/dL (12-16); IMMATURE GRANULOCYTES 0.9 % (0-5); LYMPHOCYTES 21.3 % (15-50); MCHC 32.9 g/dL (31.0-37.0); MEAN PLATELET VOLUME 9.2 fL (7.4-10.4); MONOCYTES 11.9 % (2-11); NEUTROPHILS 63.4 % (40-80); RBC 3.59 10x6/uL (4.00-5.40); RDW 14.1 % (11.5-14.5); WBC 3.2 10x3/uL (4.8-10.8)
[2020-02-03 12:20] LABS: PLATELET COUNT 174 10x3/uL (130-400)
[2020-02-03 12:24] LABS: CALC OSMOLALITY 280 mosm/kg (275-300); CALCIUM 8.3 mg/dL (8.5-10.1); CARBON DIOXIDE 27.6 mmol/L (21.0-32.0); CHLORIDE - SERUM 102 mmol/L (98-107); CREATININE - SERUM 1.2 mg/dL (0.6-1.3); GLUCOSE 117 mg/dL (74-106); POTASSIUM - SERUM 4.2 mmol/L (3.5-5.1); SODIUM 138 mmol/L (136-145); UREA NITROGEN 24 mg/dL (7-18); eGFR NON AFRICAN AMERICAN 46 mL/min (90-120)
[2020-02-03 12:26] LABS: APTT 31.7 SECONDS (22.8-39.4); INR 0.99 (0.85-1.17)
[2020-02-03 12:41] LABS: ALBUMIN 2.7 g/dL (3.4-5.0); ALKALINE PHOSPHATASE 24 U/L (30-120); ALT (SGPT) 28 U/L (10-68); BILIRUBIN - TOTAL 0.35 mg/dL (0.2-1.3); CKMB 0.2 U/L (0.0-3.6); CREATINE KINASE 55 UL (21-215); PRO BNP 2299 pg/mL (0-450); PROTEIN - SERUM 6.3 g/dL (6.4-8.2)
[2020-02-03 12:43] LABS: TROPONIN-I < 0.017 ng/mL (0.000-0.060)
[2020-02-03] MEDS ORDERED: ZITHROMAX250 MG PO (13:55)
[2020-02-03] MEDS ORDERED: OMNICEF300 MG PO (13:55)
[2020-02-03 16:05] VITALS: BP 137/56
== END 2020-02-03 16:06 | disposition home or self-care (01) ==
LOC: D.ER 11:24
PROVIDERS: Family Medicine
DX: U07.1 COVID-19 (principal); J18.9 Pneumonia, unspecified organism; D72.819 Decreased white blood cell count, unspecified; R06.02 Shortness of breath; J81.1 Chronic pulmonary edema; I10 Essential (primary) hypertension; I25.2 Old myocardial infarction